=== PATIENT | female | born 1945 | race American Indian/Alaskan Native ===

== ENCOUNTER 2018-03-18 09:33 | Emergency (ER) | payer MEDICARE ==
[2018-03-18 10:19] LABS: Hematocrit 33.3 % (30.3-42.9); Hemoglobin 10.7 gm/dl (10.1-14.3); Mean Corpuscular HGB Conc 32 % (30-34); Mean Corpuscular Hemoglobin 28 pg (28-32); Mean Corpuscular Volume 88 fl (79-97); Platelet Count 299 K/mm3 (140-440); Red Blood Count 3.78 M/mm3 (3.65-5.03); Red Cell Distribution Width 15.1 % (13.2-15.2)
[2018-03-18 10:35] LABS: BUN/Creatinine Ratio 39; Blood Urea Nitrogen 31 mg/dL (7-17); Calcium 9.2 mg/dL (8.4-10.2); Hemolysis Index 3
[2018-03-18 10:52] LABS: Band Neutrophils # (Manual) 1.2 K/mm3; Basophils % (Manual) 0 % (0.0-1.8); Eosinophils % (Manual) 0 % (0.0-4.3); Monocytes % (Manual) 3.5 % (0.0-7.3); Myelocytes # (Manual) 0.1 K/mm3; Promyelocytes # (Manual) 0.1 K/mm3; Total Cells Counted 200
[2018-03-18 10:53] LABS: Anisocytosis 1+; Burr Cells Few; Hypochromasia 1+; Ovalocytes Few; Platelet Estimate Consistent w Auto; Poikilocytosis 1+
[2018-03-18] MEDS ORDERED: HumuLIN R IV ONE (13:17)
--- NOTE | 2018-03-18 13:24 | Emergency Department Report ---
Blank Doc - Documentation Documentation: 72 year-old female with past medical history hypertension diabetes, came in complaining of left foot pain and left foot wound. Patient states that she's had this now for over a month. Patient on examination has also now from her left foot with diffuse left foot infection with bone exposed. Patient also has left leg cellulitis. Patient is also in DKA. plan: -Insulin, fluids, insulin drip -vancomycin, zosyn -Pt to go to acute side and be admitted
[2018-03-18] MEDS ORDERED: VANCOMYCIN 1,250 MG in NACL 0.9% 250ML 250 ML IV ONE (14:00)
[2018-03-18] MEDS ORDERED: VANCOMYCIN PHARMACY TO DOSE IV SCH (14:00)
[2018-03-18] MEDS ORDERED: ZOSYN/NS 3.375GM/50ML 3.375 GM/50 ML BAG IV SCH (14:00)
[2018-03-18 14:12] LABS: INR 0.93 (0.87-1.13)
[2018-03-18 14:13] LABS: Partial Thromboplastin Time 31.6 Sec. (24.2-36.6)
--- NOTE | 2018-03-18 14:32 | XRay Report ---
LEFT FOOT RADIOGRAPHS INDICATION: Left foot infection. Evaluate for osteomyelitis. COMPARISON: None similar at this institution. FINDINGS: AP, lateral and oblique left foot radiographs demonstrate extensive subcutaneous emphysema involving the imaged lower leg and greatest along medial aspect of the foot. Extensive foot dorsal soft tissue swelling also noted. Some ulceration about the heel suspected. Small dorsal and plantar calcaneal spurs. Possible osteopenia. Foot bones and joints are otherwise grossly intact. CONCLUSION: Left foot and imaged lower leg extensive subcutaneous emphysema with diffuse swelling/cellulitis. No definite plain radiographic evidence of bony destruction at this time. Please correlate. Thank you for the opportunity to participate in this patient's care.
[2018-03-18] MEDS ORDERED: NACL 0.9% 1000 ML 1,000 ML IV ONE ×3 (14:39→16:00)
[2018-03-18] MEDS ORDERED: D50W (25GM) Syringe IV PRN (14:39)
--- NOTE | 2018-03-18 14:48 | Emergency Department Report ---
ED General Adult HPI - General Chief complaint: Weakness Stated complaint: TROUBLE WALKING, WEAK,FATIGUE Time Seen by Provider: 03/18/18 12:45 Source: patient Mode of arrival: Ambulatory Limitations: Physical Limitation - History of Present Illness Initial comments: Patient was seen at [facility] at initial triage lab studies received antibiotics culture fluids for possible DKA with sepsis with infected left foot she does have a chronic changes to the foot with local redness or warmth and necrotic changes, she was turned over to my care for definitive follow-up and management she's having no chest painaching chills she is awake alert oriented 3 she does appear chronically ill neck was supple having no other complaints except the red hot foot. She's not a good historian except that she thinks is been there for a while she does have a chronic changes to the foot and unclear when the foot first became necrotic and she is here today for worsening redness and pain to the left lower extremity -: days(s) Associated Symptoms: fever/chills, malaise, weakness. denies: confusion, chest pain, cough, diaphoresis, shortness of breath, syncope - Related Data Allergies Allergy/AdvReac Type Severity Reaction Status Date / Time aspirin Allergy Hives Verified 03/18/18 10:05 ED Review of Systems ROS: Stated complaint: TROUBLE WALKING, WEAK,FATIGUE Other details as noted in HPI Comment: All other systems reviewed and negative Constitutional: fever, malaise, weakness. denies: diaphoresis Eyes: denies: eye pain ENT: denies: ear pain, throat pain Respiratory: denies: cough, orthopnea Cardiovascular: denies: chest pain, palpitations, dyspnea on exertion, orthopnea Endocrine: denies: excessive sweating Gastrointestinal: denies: abdominal pain, nausea, vomiting, constipation, hematemesis, melena, hematochezia Genitourinary: denies: urgency, dysuria Skin: rash, lesions, change in color Neurological: numbness. denies: headache, weakness, vertigo ED Past Medical Hx - Past Medical History Hx Diabetes: Yes (NO MEDICATION) - Surgical History Past Surgical History?: No - Social History Smoking Status: Former Smoker Substance Use Type: None ED Physical Exam - General Limitations: Physical Limitation General appearance: alert, anxious - Head Head exam: Present: atraumatic, normocephalic - Eye Eye exam: Present: EOMI - ENT ENT exam: Present: normal exam, normal orophraynx - Neck Neck exam: Present: normal inspection. Absent: tenderness, meningismus - Respiratory Respiratory exam: Present: normal lung sounds bilaterally. Absent: respiratory distress, wheezes, rales, rhonchi, stridor, chest wall tenderness, accessory muscle use - Cardiovascular Cardiovascular Exam: Present: regular rate, normal rhythm, normal heart sounds. Absent: systolic murmur, diastolic murmur, rubs, gallop - GI/Abdominal GI/Abdominal exam: Present: soft. Absent: tenderness, guarding, rebound, rigid , mass, pulsatile mass - Extremities Exam Extremities exam: Present: tenderness, other (dorsal left foot with necrotic change with local warmth and redness Nvi) - Back Exam Back exam: Absent: CVA tenderness (L), muscle spasm, paraspinal tenderness, vertebral tenderness - Neurological Exam Neurological exam: Present: alert, oriented X3, CN II-XII intact. Absent: motor sensory deficit - Skin Skin exam: Present: erythema, ecchymosis, other (warmth) ED Course Vital Signs 03/18/18 03/18/18 09:59 13:41 Pulse Rate 93 H Respiratory 19 19 Rate Blood Pressure 120/57 O2 Sat by Pulse 100 Oximetry - Reevaluation(s) Reevaluation #1: 03/18/18 14:[address] [facility] he was given IV fluids and antibiotics ED Medical Decision Making - Lab Data Result diagrams: 03/18/18 10:08 03/18/18 10:12 - Radiology Data Radiology results: report reviewed - Medical Decision Making Antibiotics were given IV fluids were given patient's nhc[id number].Casewasd iscussedwithsurgeryforadamantgiventheelevatedsugarandtheketosis.Iwilldiscusscase withpodiatr ygiventhenatureoftheextremityandlikelyneedforamputation.Shehasastablebloodpressu reshe ' llbeadmittedforfurtherevaluationofhyperglycemiawithketosiswithnecroticleftfootwi thcellulitis hyperglycemia w/ ketosis and cellultisi w/ necrotic l foot, page to podiatry for eval, vss Critical care attestation.: If time is entered above; I have spent that time in minutes in the direct care of this critically ill patient, excluding procedure time. ED Disposition Clinical Impression: DKA (diabetic ketoacidosis), Cellulitis, Diabetic foot infection Disposition: OP ADMIT IP TO THIS HOSP Is pt being admited?: Yes Condition: Stable Instructions: Diabetic Ketoacidosis (ED), Diabetes Mellitus Type 2 in Adults ( ED) Referrals: PRIMARY CARE, [Primary Care Provider] - 3-5 Days Time of Disposition: 15:07
[2018-03-18] MEDS ORDERED: HumuLIN R 100 UNITS in NACL 0.9% 99 ML IV SCH (15:00)
[2018-03-18] MEDS ORDERED: SODIUM CHLORIDE FLUSH SYRINGE 10 ML IV PRN (15:06)
[2018-03-18] MEDS ORDERED: VANCOMYCIN VIAL IV ONE (15:08)
[2018-03-18] MEDS ORDERED: NACL 0.9% 1000 ML IV ONE (15:08)
--- NOTE | 2018-03-18 15:11 | History and Physical Report ---
History of Present Illness Chief complaint: My foot looks bad History of present illness: 72 YO Female with DM, Medication Noncompliance, HTN presents to ED for evaluation. Pt states that she has experienced Left foot swelling, redness, and drainage over the past 3 weeks with worsening symptoms over the past 1 week. Pt states that she is unable to bear weight on her left leg due to pain. Pt denies fever, chills, CP, Palpitations, NVD, syncope, Trauma, foot drop, recent ill contacts. Pt seen and evaluated in ED and found to have Sepsis secondary to LLE Cellulitis with gangrene, as well as DKA. Pt found to have soft tissue gas on x ray. Podiatry/Surgery consulted by ED physician while patient in ED. Pt admitted to ICU. Past History Past Medical History: diabetes, hypertension Past Surgical History: No surgical history, Other (reviewed) Social history: . denies: smoking, alcohol abuse, prescription drug abuse Family history: diabetes, hypertension Medications and Allergies Allergies Allergy/AdvReac Type Severity Reaction Status Date / Time aspirin Allergy Hives Verified 03/18/18 10:05 Active Meds: Active Medications Dextrose (D50w (25gm) Syringe) 0 ml IV ONCE PRN PRN Reason: Hypoglycemia Piperacillin Sod/Tazobactam Sod (Zosyn/Ns 3.375gm/50ml) 3.375 gm in 50 mls @ 100 mls/hr IV Q6HR INA Vancomycin HCl (Vancomycin/0.45 Ns 1 Gm/250 Ml) 1 gm in 250 mls @ 167.007 mls/ hr IV Q24H INA; Protocol Vancomycin HCl 1,250 mg/ (Sodium Chloride) 262.5 mls @ 166.667 mls/hr IV ONCE ONE Stop: 03/18/18 15:34 Last Admin: 03/18/18 14:08 Dose: 166.667 mls/hr Sodium Chloride (Nacl 0.9% 1000 Ml) 1,000 mls @ 999 mls/hr IV BOLUS ONE Stop: 03/18/18 15:39 Insulin Human Regular 100 (units/ Sodium Chloride) 100 mls @ 1 mls/hr IV TITR INA; Protocol Sodium Chloride (Nacl 0.9% 1000 Ml) 1,000 mls @ 999 mls/hr IV BOLUS ONE Stop: 03/18/18 15:42 Sodium Chloride (Nacl 0.9% 1000 Ml) 1,000 mls @ 999 mls/hr IV BOLUS ONE Stop: 03/18/18 17:00 Piperacillin Sod/Tazobactam Sod (Zosyn/Ns 4.5gm/100ml) 4.5 gm in 100 mls @ 200 mls/hr IV Q8HR INA; Protocol Sodium Chloride (Sodium Chloride Flush Syringe 10 Ml) 10 ml IV BID INA Sodium Chloride (Sodium Chloride Flush Syringe 10 Ml) 10 ml IV PRN PRN PRN Reason: LINE FLUSH Sodium Chloride (Nacl 0.9% 1000 Ml) 1,910 ml 30 ml/kg (1910 ml) IV ONCE ONE Stop: 03/18/18 15:09 Vancomycin HCl (Vancomycin Pharmacy To Dose) 1 each IV PKCONSULT INA Vancomycin HCl (Vancomycin Vial) 1,250 mg 20 mg/kg (1250 mg) IV ONCE ONE; Protocol Stop: 03/18/18 15:09 Review of Systems Constitutional: no weight loss, no weight gain, no fever, no chills Ears, nose, mouth and throat: no ear pain, no ear discharge, no tinnitis, no decreased hearing, no nose pain, no nasal congestion Breasts: no change in shape, no swelling, no mass Cardiovascular: no chest pain, no orthopnea, no palpitations, no rapid/ irregular heart beat, no edema, no syncope Respiratory: no cough, no cough with sputum, no excessive sputum, no hemoptysis , no shortness of breath Gastrointestinal: no nausea, no vomiting, no diarrhea, no constipation, no change in bowel habits Genitourinary Female: no dysmenorrhea, no pelvic pain, no flank pain, no menorrhagia, no dysuria, no urinary frequency, no urgency, no stress incontinence Rectal: no pain, no incontinence, no bleeding Musculoskeletal: no neck stiffness, no neck pain, no shooting arm pain, no arm numbness/tingling, no low back pain, no shooting leg pain, no leg numbness/ tingling Integumentary: no rash, no pruritis, no redness, no sores, no wounds, no jaundice Neurological: no paralysis, no weakness, no parathesias, no numbness, no tingling, no seizures, no syncope, no tremors, no ataxia Psychiatric: no anxiety, no memory loss, no change in sleep habits, no sleep disturbances, no insomnia, no hypersomnia, no change in appetite, no change in libido, no suicidal ideation Endocrine: no cold intolerance, no heat intolerance, no polyphagia, no excessive thirst, no polydipsia, no polyuria, no nocturia, no excessive sweating Hematologic/Lymphatic: no easy bruising, no easy bleeding, no lymphadenopathy, no lymphedema Allergic/Immunologic: no urticaria, no allergic rhinitis, no wheezing Exam - Constitutional Vitals: Temp Pulse Resp BP Pulse Ox 93 H 19 120/57 100 03/18/18 09:59 03/18/18 13:41 03/18/18 09:59 03/18/18 09:59 General appearance: Present: mild distress - EENT Eyes: Present: PERRL ENT: hearing intact, clear oral mucosa - Neck Neck: Present: supple, normal ROM - Respiratory Respiratory effort: normal Respiratory: bilateral: CTA - Cardiovascular Heart Sounds: Present: S1 & S2. Absent: rub, click - Extremities Extremities: pulses symmetrical, No edema Extremity abnormal: edema, ulceration, erythema, tenderness (LLE) Peripheral Pulses: abnormal (capillary refill greater than 3.6 seconds) - Abdominal General gastrointestinal: Present: soft, non-tender, non-distended, normal bowel sounds Female genitourinary: Present: normal - Integumentary Integumentary: Present: clear, warm, dry - Musculoskeletal Musculoskeletal: gait normal, strength equal bilaterally - Psychiatric Psychiatric: appropriate mood/affect, intact judgment & insight - Neurologic Neurologic: CNII-XII intact, moves all extremities Results - Labs CBC & Chem 7: 03/18/18 10:08 03/18/18 10:12 Labs: Abnormal lab results 03/18/18 03/18/18 03/18/18 Range/Units 10:08 10:12 13:31 WBC 26.1 H (4.5-11.0) K/mm3 Seg Neuts % (Manual) 88.0 H (40.0-70.0) % Lymphocytes % (Manual) 2.0 L (13.4-35.0) % Seg Neutrophils # Man 23.0 H (1.8-7.7) K/mm3 Lymphocytes # (Manual) 0.5 L (1.2-5.4) K/mm3 Monocytes # (Manual) 0.9 H (0.0-0.8) K/mm3 POC ABG pCO2 (35-45) POC ABG pO2 (80-105) Sodium 124 L (137-145) mmol/L Chloride 80.1 L (98-107) mmol/L Carbon Dioxide 11 L (22-30) mmol/L BUN 31 H (7-17) mg/dL Glucose 569 H* (65-100) mg/dL Lactic Acid 2.80 H* (0.7-2.0) mmol/L 03/18/18 03/18/18 Range/Units 14:35 14:39 WBC (4.5-11.0) K/mm3 Seg Neuts % (Manual) (40.0-70.0) % Lymphocytes % (Manual) (13.4-35.0) % Seg Neutrophils # Man (1.8-7.7) K/mm3 Lymphocytes # (Manual) (1.2-5.4) K/mm3 Monocytes # (Manual) (0.0-0.8) K/mm3 POC ABG pCO2 14.0 L (35-45) POC ABG pO2 130 H (80-105) Sodium (137-145) mmol/L Chloride (98-107) mmol/L Carbon Dioxide (22-30) mmol/L BUN (7-17) mg/dL Glucose (65-100) mg/dL Lactic Acid 3.30 H* (0.7-2.0) mmol/L Assessment and Plan - Patient Problems (1) Sepsis Current Visit: Yes Status: Acute Qualifiers: Sepsis type: sepsis due to unspecified organism Qualified Code(s): A41.9 - Sepsis, unspecified organism Plan to address problem: IV antibiotics, IVF resuscitation, monitor uop q shift, serial lactic acid levels, blood cultures, Chest x ray, wound cultures, urinalysis, CBC (2) HTN (hypertension) Current Visit: Yes Status: Acute Qualifiers: Hypertension type: essential hypertension Qualified Code(s): I10 - Essential (primary) hypertension Plan to address problem: monitor bp q shift, continue current medical management (3) DKA (diabetic ketoacidosis) Current Visit: Yes Status: Acute (4) Diabetic foot infection Current Visit: Yes Status: Acute Plan to address problem: DKA protocol: Insulin drip, IVF resuscitation, serial lactic acid, supportive care, serial bmp, monitor anion gap (5) DVT prophylaxis Current Visit: Yes Status: Acute
[2018-03-18 16:00] LABS: BUN/Creatinine Ratio 36; Blood Urea Nitrogen 32 mg/dL (7-17); Calcium 8.2 mg/dL (8.4-10.2); Hemolysis Index 259
[2018-03-18] MEDS ORDERED: ZOSYN/NS 4.5GM/100ML 4.5 GM/100 ML VIAL IV SCH (16:00)
--- NOTE | 2018-03-18 16:24 | Event Note ---
Date: 03/18/18 72 year old female with acute worsening over the last few days of a chronic left lower extremity wound. Knee and tib/fib x-rays ordered. Crepitus on physical exam and gas gangrene on xray. Vascular consulted to evaluate left leg ischemia. No left lower extremity ischemia appreciated. No vascular intervention required. Would consult orthopedist. If no orthopedist available, then consider transfer to a facility with orthopedics available. Patient will likely require major amputation of the left lower extremity.
--- NOTE | 2018-03-18 17:07 | XRay Report ---
FINAL REPORT EXAM: XR KNEE 1-2V LT HISTORY: gas gangrene TECHNIQUE: Left knee 2 views PRIORS: None. FINDINGS: No fracture is identified. No dislocation seen. No evidence of joint effusion. Patella demonstrates normal positioning. No acute bony abnormality identified. IMPRESSION: Negative knee series
--- NOTE | 2018-03-18 17:21 | XRay Report ---
FINAL REPORT EXAM: XR TIBIA FIBULA 2V LT HISTORY: gas gangrene TECHNIQUE: Left tibia-fibula two views PRIORS: None. FINDINGS: There is soft tissue gas present. The air collections are seen along the dorsum of the foot, around the calcaneus and extending up the lower leg to the level of the proximal. No focal bony destructive changes are observed. No radiopaque foreign bodies are identified. Joint spaces are within normal limits. IMPRESSION: Soft tissue gas consistent with gas gangrene No plain film evidence for acute osteomyelitis
[2018-03-18 17:22] LABS: BUN/Creatinine Ratio 40; Blood Urea Nitrogen 32 mg/dL (7-17); Calcium 7.7 mg/dL (8.4-10.2); Hemolysis Index 68
[2018-03-18 17:27] VITALS: BP 116/74
--- NOTE | 2018-03-18 19:35 | Magnetic Resonance Report ---
FINAL REPORT PROCEDURE: MR LE NONJOINT LT WO/W CON TECHNIQUE: Magnetic resonance imaging of the LEFT foot was performed using standard pulse sequences before and after the IV injection of paramagnetic contrast. HISTORY: osteomyelitis COMPARISON: No prior studies are available for comparison. FINDINGS: There is diffuse soft tissue swelling seen throughout the ankle and foot. There are multiple areas of void signal intensity consistent with bubbles of gas seen on plain films of the foot also performed earlier today. No fractures are identified. There is subtle decreased T1 signal in the posterior aspect of the calcaneus extending to the neck of the calcaneus. This shows increased T2 signal and mild enhancement after administering gadolinium. The appearance suggest mild osteomyelitis. No other changes are seen that would suggest osteomyelitis. There is mild osteoarthritic change in the MTP joint of the great toe. No effusions are identified. Skin thickening and subcutaneous edema visualized consistent with cellulitis. The flexor and extensor tendons appear to be intact. Talar dome is intact. IMPRESSION: Skin thickening and subcutaneous edema visualized consistent with cellulitis. Multiple small signal voids visualized in the soft tissues of the foot consistent with a gas bubble seen on the plain film earlier today. The overall appearance suggest cellulitis with gas-forming organism. Abnormal signal seen in the periphery of the posterior aspect of the calcaneus extending to the neck of the calcaneus as described with mild enhancement suggesting mild osteomyelitis. No other evidence of osteomyelitis. No fractures are seen. Mild osteoarthritic change MTP joint of the great toe.
[2018-03-18] MEDS ORDERED: SODIUM CHLORIDE FLUSH SYRINGE 10 ML IV SCH (22:00)
[2018-03-19] MEDS ORDERED: VANCOMYCIN/0.45 NS 1 GM/250 ML 1 GM/250 ML BAG IV SCH (14:00)
== END 2018-03-18 19:06 | disposition other institution (70) ==
LOC: ED 09:33
DX: E11.10 Type 2 diabetes mellitus with ketoacidosis without coma (principal); E11.69 Type 2 diabetes mellitus with other specified complication; L08.9 Local infection of the skin and subcutaneous tissue, unspecified; Z88.5 Allergy status to narcotic agent
CPT/HCPCS: 36415; 73560; 73590; 73630; 73720; 80048; 82010; 82140; 82803; 82962; 83735; 84100; 84484; 85007; 85025; 85610; 85730; 87040; 96365; 96366; 96367; 96368; 96375; 99285; A9577; J2543; J3370; J7030; J7050; J1815

== ENCOUNTER 2019-03-01 22:00 | Inpatient (IN) | payer MEDICARE ==
--- NOTE | 2019-03-01 22:12 | Emergency Department Report ---
Chief Complaint: Weakness Stated Complaint: LEFT ARM TWITCHING WEAKNESS Time Seen by Provider: 03/01/19 22:06 - HPI History of Present Illness: pt presents with tremors of the left arm that began 1 hour ago according to patient, according to daughter it started at 6:00 PM no XIAO, numbness no hx of CVA hx of DM, is supposed to be on metformin no cardiac hx blood sugar >500 on finger stick will send to CT immediately, to r/o CVA will send to main ED for further evaluation and treatment MSE screening note: Focused history and physical exam performed. Due to findings the following was ordered: CT head w/o contrast, labs
--- NOTE | 2019-03-01 22:36 | Cat Scan Report ---
PROCEDURE: CT HEAD/BRAIN WO CON TECHNIQUE: Spiral CT imaging of the brain was obtained without IV contrast. HISTORY: Stroke symptoms COMPARISONS: None FINDINGS: Brain: There is no evidence of intracranial hemorrhage. No parenchymal hemorrhage is seen. No mass lesions or mass effect is identified. No abnormal extra-axial fluid collections or masses are seen. There is minimal decreased density seen in the periventricular white matter without mass effect. Thi s is fairly symmetric and does not exhibit any mass effect consistent with gliosis probably on the ba sis of microvascular disease or white matter changes of aging. Ventricles: The ventricles, sulcal pattern and fissures are minimally prominent consistent with atro phy. Bone Windows: No evidence of fracture. Paranasal sinuses: Visualized portions are clear.. Mastoid air cells: There is rest portions are clear.. IMPRESSION: Minimal atrophy and gliosis. No acute abnormalities seen. This document is electronically signed by Steve Puri MD., March 01 2019 10:34:23 PM ET
[2019-03-01] MEDS ORDERED: ATIVAN IV ONE (22:38)
[2019-03-01] MEDS ORDERED: KEPPRA 1,000 MG/NS 0.75% 100ML 1,000 MG/100 ML BAG IV ONE (22:38)
--- NOTE | 2019-03-01 22:53 | Emergency Department Report ---
HPI - General Chief Complaint: Weakness Time Seen by Provider: 03/01/19 22:06 - HPI HPI: 73-year-old female presents to the emergency department from home as a code stroke. The patient has been having a few days of left upper extremity and hand weakness. It has caused her to have difficulty using her walker and she has had at least one, if not more, falls secondary to this. The patient's left hand appears clenched in her left upper extremity is having some type of tremor and/or spasm. The patient's daughter says that this has been going on for a few days as well intermittently but the patient herself says that this started this evening. She denies any headache, vision change, slurred speech or any other neurological deficits. She has a past medical history of diabetes but is not on any medication. 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 ED Past Medical Hx - Past Medical History Previous Medical History?: Yes Hx Diabetes: Yes (NO MEDICATION) - Surgical History Additional Surgical History: Massimo QUARLES 02/2015 - Social History Smoking Status: Never Smoker Substance Use Type: None ED Review of Systems ROS: Stated complaint: LEFT ARM TWITCHING WEAKNESS Other details as noted in HPI Comment: All other systems reviewed and negative Constitutional: denies: chills, fever Eyes: denies: eye pain, vision change ENT: denies: ear pain, throat pain Respiratory: denies: cough, shortness of breath Cardiovascular: denies: chest pain, palpitations Gastrointestinal: denies: abdominal pain, vomiting Genitourinary: denies: dysuria, discharge Musculoskeletal: denies: back pain, arthralgia Skin: denies: rash, lesions Neurological: weakness. denies: headache Physical Exam - Physical Exam Vital Signs: Vital Signs 03/01/19 22:14 Temperature 99.4 F Pulse Rate 108 H Respiratory 18 Rate Blood Pressure 190/107 O2 Sat by Pulse 99 Oximetry Physical Exam: GENERAL: The patient is well-developed well-nourished. HEENT: Normocephalic. Atraumatic. Patient has moist mucous membranes. EYES: Extraocular motions are intact. Pupils are equal and reactive to light bilaterally. NECK: Supple. Trachea is midline. CHEST/LUNGS: Clear to auscultation. There is no respiratory distress noted. HEART/CARDIOVASCULAR: Regular. There is no tachycardia. There is no obvious murmur. ABDOMEN: Abdomen is soft, nontender. Patient has normal bowel sounds. There is no abdominal distention. SKIN: Skin is warm and dry. NEURO: The patient is awake, alert, and oriented. The patient is cooperative. The patient has normal speech. Cranial nerves II through XII grossly intact. The patient has a clenched left hand/wrist and her left upper extremity continues to move like a large, or spasmodic motion and the patient is unable to stop this. No facial asymmetry. MUSCULOSKELETAL: There is no tenderness or deformity. There is no evidence of acute injury. Left above-knee amputation. ED Course Vital Signs 03/01/19 22:14 Temperature 99.4 F Pulse Rate 108 H Respiratory 18 Rate Blood Pressure 190/107 O2 Sat by Pulse 99 Oximetry - Consultations Consultation #1: 03/02/19 01:04 The patient was evaluated by the telemedicine neurologist in the room as soon as she returned from CT scan. He feels that the patient may be exhibiting focal seizures with the left upper extremity clenched fist and unintentional movements. However, he also feels that the patient should still be worked up for possible stroke. However the symptoms began a few days ago and the patient is outside the window for TPA. He recommended giving a dose of Ativan and then loaded with 1 g of Keppra followed by 500 mg of Keppra twice a day. Consultation #2: 03/02/19 01:[address] Titus at the [facility] transfer line who has given permission for this patient to be admitted to our hospital. ED Medical Decision Making - Lab Data Result diagrams: 03/01/19 22:53 03/01/19 22:53 - EKG Data -: EKG Interpreted by [facility] EKG shows normal: sinus rhythm, axis, intervals, QRS complexes (q waves to the anterior-septal leads) Rate: tachycardia (101 bpm) - EKG Data When compared to previous EKG there are: previous EKG unavailable Interpretation: other (sinus tachycardia at 101 beats minute, Q waves to the septal and anterior leads) - Radiology Data Radiology results: report reviewed PROCEDURE: CT HEAD/BRAIN WO CON TECHNIQUE: Spiral CT imaging of the brain was obtained without IV contrast. HISTORY: Stroke symptoms COMPARISONS: None FINDINGS: Brain: There is no evidence of intracranial hemorrhage. No parenchymal hemorrhage is seen. No mass lesions or mass effect is identified. No abnormal extra-axial fluid collections or masses are seen. There is minimal decreased density seen in the periventricular white matter without mass effect. This is fairly symmetric and does not exhibit any mass effect consistent with gliosis probably on the basis of microvascular disease or white matter changes of aging. Ventricles: The ventricles, sulcal pattern and fissures are minimally prominent consistent with atrophy. Bone Windows: No evidence of fracture. Paranasal sinuses: Visualized portions are clear.. Mastoid air cells: There is rest portions are clear.. IMPRESSION: Minimal atrophy and gliosis. No acute abnormalities seen. This document is electronically signed by Ricardo Guzman MD., March 01 2019 10:34:23 PM ET Transcribed By: DFN Dictated By: RICARDO GUZMAN MD Electronically Authenticated By: RICARDO GUZMAN MD Signed Date/Time: 03/01/192235 - Medical Decision Making This patient presents from triage as a code stroke. However while she was at the CT scan the patient started having worsening of this left upper extremity tremor or unintentional movement along with a clenched and flexed left hand. CT scan did not show any bleed, shift, mass, ischemia or any other acute process. She was seen by the telemedicine neurologist who felt that this could be a focal seizure versus CVA versus other. She is not a TPA candidate but the recommendation was given to give Ativan and Keppra. Patient's labs came back showing severe hyperglycemia with a blood sugar of about 730. She has an anion gap of 19 and only some trace ketones in the urine. She does not appear to be in diabetic ketoacidosis. She has been given IV fluid resuscitation and a bolus of IV insulin and will continue to have Accu-Cheks done. We were given permission by her insurance company, [employer], to keep her at our facility for further evaluation and treatment. The patient was accepted for admission by the hospitalist, Dr. Mar. - Differential Diagnosis DKA, HHNK, CVA, TIA Critical Care Time: Yes Critical care time in (mins) excluding proc time.: 35 Critical care attestation.: If time is entered above; I have spent that time in minutes in the direct care of this critically ill patient, excluding procedure time. Critical care time was spent on this patient during her initial evaluation, multiple re-evaluations, ordering interpretation of labs and imaging, discussion with the telemedicine neurologist, discussion with the patient's family. The patient has a condition that has a higher probability of clinically significant, sudden, or life-threatening deterioration that has required multiple evaluations and direct attention, intervention, and management. Critical Care Time: 35 minutes ED Disposition Clinical Impression: Hyperosmolar non-ketotic state in patient with type 2 diabetes mellitus, Involuntary movements Uncontrolled diabetes mellitus Qualifiers: Diabetes mellitus type: type 2 Glycemic state: with hyperglycemia Qualified Code(s): E11.65 - Type 2 diabetes mellitus with hyperglycemia Disposition: DC-09 OP ADMIT IP TO THIS HOSP Is pt being admited?: Yes Does the pt Need Aspirin: No Condition: Serious Instructions: Diabetes Mellitus Type 2 in Adults (ED) Referrals: PRIMARY CARE, [Primary Care Provider] - 3-5 Days Time of Disposition: 01:10 - Assessment Assessment Interval: Baseline - Level of Consciousness 1a. Level of Consciousness: alert/keenly responsive - LOC Questions 1b. LOC Questions: answers both correctly - LOC Command 1c. LOC Commands: performs tasks correctly - Best Gaze 2. Best Gaze: normal - Visual 3. Visual: no visual loss - Facial Palsy 4. Facial Palsy: normal symmetrical movement - Motor Arm 5a. Motor Arm Left: some gravity effort 5b. Motor Arm Right: no drift - Motor Leg 6a. Motor Leg Left: no drift 6b. Motor Leg Right: no drift - Limb Ataxia 7. Limb Ataxia: present 1 limb - Sensory 8. Sensory: normal - Best Language 9. Best Language: no aphasia - Dysarthria 10. Dysarthria: normal - Extinction and Inattention 11. Extinction/Inattention: no abnormality - Scoring Total Score: 3 Stroke Severity: Minor Stroke
[2019-03-01 23:03] LABS: Basophils # (Auto) 0.1 K/mm3 (0.0-0.1); Basophils % (Auto) 1.2 % (0.0-1.8); Eosinophils # (Auto) 0.1 K/mm3 (0.0-0.4); Eosinophils % (Auto) 1.2 % (0.0-4.3); Hematocrit 35.5 % (30.3-42.9); Hemoglobin 11.8 gm/dl (10.1-14.3); Lymphocytes # (Auto) 1.1 K/mm3 (1.2-5.4); Lymphocytes % (Auto) 15.8 % (13.4-35.0); Mean Corpuscular HGB Conc 33 % (30-34); Mean Corpuscular Volume 87 fl (79-97); Monocytes # (Auto) 0.9 K/mm3 (0.0-0.8); Monocytes % (Auto) 12.6 % (0.0-7.3); Platelet Count 281 K/mm3 (140-440); Red Blood Count 4.09 M/mm3 (3.65-5.03); Red Cell Distribution Width 14.5 % (13.2-15.2)
[2019-03-01 23:14] LABS: INR 0.9 (0.87-1.13)
[2019-03-01 23:15] LABS: Partial Thromboplastin Time 22.1 Sec. (24.2-36.6); Thrombin Time 17.8 Sec. (15.1-19.6)
[2019-03-01] MEDS ORDERED: NACL 0.9% 1000 ML 1,000 ML ONE (23:22)
[2019-03-01 23:24] LABS: Calcium 9.3 mg/dL (8.4-10.2)
[2019-03-01] MEDS ORDERED: NACL 0.9% 1000 ML 1,000 ML IV ONE (23:24)
[2019-03-01 23:30] LABS: Creatine Kinase MB 2.8 ng/mL (0.0-4.0)
[2019-03-01 23:32] LABS: Alanine Aminotransferase 28 units/L (7-56); Albumin 3.6 g/dL (3.9-5); BUN/Creatinine Ratio 19; Blood Urea Nitrogen 17 mg/dL (7-17); Calcium 9.3 mg/dL (8.4-10.2); Hemolysis Index 46
[2019-03-01 23:35] LABS: Bilirubin,Urine NEG (Negative); Blood,Urine SM (Negative); Color,Urine Colorless (Yellow); Mucus,Urine FEW /HPF; Urobilinogen,Urine < 2.0 mg/dL (<2.0)
[2019-03-01] MEDS ORDERED: HumuLIN R IV ONE (23:49)
[2019-03-02] MEDS ORDERED: REGLAN PO PRN (00:36)
[2019-03-02] MEDS ORDERED: APRESOLINE IV PRN (00:36)
[2019-03-02] MEDS ORDERED: SODIUM CHLORIDE FLUSH SYRINGE 10 ML INJ PRN (00:36)
[2019-03-02] MEDS ORDERED: ZOFRAN IV PRN ×2 (00:36)
[2019-03-02] MEDS ORDERED: PHENERGAN PR PRN (00:36)
[2019-03-02] MEDS ORDERED: DULCOLAX PR PRN (00:36)
[2019-03-02] MEDS ORDERED: SODIUM CHLORIDE FLUSH SYRINGE 10 ML IV PRN (00:36)
[2019-03-02] MEDS ORDERED: TYLENOL PO PRN ×2 (00:36)
[2019-03-02] MEDS ORDERED: MILK OF MAGNESIA PO PRN (00:36)
[2019-03-02] MEDS ORDERED: AMBIEN PO PRN (00:36)
--- NOTE | 2019-03-02 01:00 | Emergency Department Report ---
ED Neuro Deficit HPI - General Chief Complaint: Weakness Stated Complaint: LEFT ARM TWITCHING WEAKNESS Time Seen by Provider: 03/01/19 22:06 Source: patient, family Mode of arrival: Wheelchair Limitations: Physical Limitation - History of Present Illness Initial Comments: [facility] Impression: * RO Acute Ischemic Stroke * Focal Status Epilepticus Patient presents with hsitory of two days of weakness left upper limb, and now recurrent clonic activity of the left upper limb in the last hour before admission. The presentation now is suggestive of recurrent focal motor seizures in the setting of more subacute left upper limb weakness. Underlying subacute infarct would need to be considered. With two days of symptoms , she is not candidate for tPA. The presentation is not suggestive of LVO thrombosis. At this time, the plan would be to immediately initiate Antiepileptic treatment, Ativan stat , followed by Keppra 1000 mg bolus and then 500 mg bid maintenance dose. if there is indication of recurrent seizure activity, please notify us. I reassessed the patient via telemedicine again after the initial evaluation, and at that time, the seizure activity subsided. Comments: [facility] contacted: [phone] [facility] at bedside: 2230 NIHSS assessment time: 2234 Recommendations: * AED treatment now. * Start Antiplatelet therapy now. * Not candidate for tPA or thrombectomy. * Routine neurology consultation in am. Discussed with ED MD Please call with questions Carlos Luis MD [facility] CC Left upper limb shaking. History of Present Illness Patient is a pleasant 73 year old woman who presents with history of left upper limb weakness, which she states she has had since yesterday. It appears that the weakness became more significant this evening, and as of one hour before the presentation, she developed involuntary clonic movements of the left upper limb. This has been present intermittently but persistent for the last hour or so. Diagnostic: Head CT reviewed. Exam: Patient is in no apparent distress. Patient appears as stated age. No obvious acute respiratory or cardiac distress. Patient is well groomed and well- nourished. 1A: Level of Consciousness - Alert; keenly responsive 1B: Ask Month and Age - Both Questions Right 1C: 'Blink Eyes' & 'Squeeze Hands' - Performs Both Tasks 2: Test Horizontal Extraocular Movements - Normal 3: Test Visual Harris - No Visual Loss 4: Test Facial Palsy - Normal symmetry 5A: Test Left Arm Motor Drift - persistent clonic movements left upper lmib 5B: Test Right Arm Motor Drift - No Drift for 10 Seconds 6A: Test Left Leg Motor Drift - amputation. 6B: Test Right Leg Motor Drift - No Drift for 5 Seconds 7: Test Limb Ataxia - No Ataxia 8: Test Sensation - Normal; No sensory loss 9: Test Language/Aphasia - Normal; No aphasia 10: Test Dysarthria - Normal 11: Test Extinction/Inattention - No abnormality Medical Decision Making: - Extensive number of diagnosis or management options are considered above. - Extensive amount of complex data reviewed. - High risk of complication and/or morbidity or mortality are associated with d ifferential diagnostic considerations above. - There may be Uncertain outcome and increased probability of prolonged functional impairment or high probability of severe prolonged functional impairment associated with some of these differential diagnosis. Medical Data Reviewed: 1.Data reviewed include clinical labs, radiology,Medical Tests; 2.Tests results discussed w/performing or interpreting physician; 3.Obtaining/reviewing old medical records; 4.Obtaining case history from another source; 5.Independent review of image, tracing or specimen. - Related Data Allergies/Adverse Reactions: Allergies Allergy/AdvReac Type Severity Reaction Status Date / Time aspirin Allergy Hives Verified 03/18/18 10:05 ED Review of Systems ROS: Stated complaint: LEFT ARM TWITCHING WEAKNESS Other details as noted in HPI Constitutional: denies: chills, fever Eyes: denies: eye pain, vision change ENT: denies: ear pain, throat pain Respiratory: denies: cough, shortness of breath Cardiovascular: denies: chest pain, palpitations Gastrointestinal: denies: abdominal pain, vomiting Genitourinary: denies: dysuria, discharge Musculoskeletal: denies: back pain, arthralgia Skin: denies: rash, lesions Neurological: weakness. denies: headache ED Past Medical Hx - Past Medical History Previous Medical History?: Yes Hx Diabetes: Yes (NO MEDICATION) - Surgical History Additional Surgical History: L AKA 02/2015 - Social History Smoking Status: Never Smoker Substance Use Type: None ED Neuro Physical Exam - General Limitations: Physical Limitation Suspected Stroke: No ED Course Vital Signs 03/01/19 03/01/19 03/01/19 22:14 23:00 23:11 Temperature 99.4 F Pulse Rate 108 H 111 H 108 H Respiratory 18 Rate Blood Pressure 190/107 164/76 O2 Sat by Pulse 99 97 94 Oximetry 03/01/19 03/01/19 03/01/19 23:13 23:15 23:17 Temperature Pulse Rate 107 H 105 H 104 H Respiratory Rate Blood Pressure 164/76 164/76 164/76 O2 Sat by Pulse 91 91 92 Oximetry 03/01/19 03/01/19 03/01/19 23:19 23:21 23:23 Temperature Pulse Rate 104 H 101 H 99 H Respiratory Rate Blood Pressure 164/76 135/64 135/64 O2 Sat by Pulse 97 99 98 Oximetry 03/01/19 03/01/19 03/01/19 23:25 23:27 23:29 Temperature Pulse Rate 101 H 100 H 100 H Respiratory Rate Blood Pressure 135/64 135/64 135/64 O2 Sat by Pulse 100 100 100 Oximetry 03/01/19 03/01/19 03/01/19 23:31 23:33 23:35 Temperature Pulse Rate 100 H 100 H 99 H Respiratory Rate Blood Pressure 135/64 135/64 127/63 O2 Sat by Pulse 100 100 100 Oximetry 03/01/19 03/01/19 03/01/19 23:36 23:37 23:39 Temperature Pulse Rate 99 H 103 H 97 H Respiratory Rate Blood Pressure 127/63 127/63 127/63 O2 Sat by Pulse 100 99 100 Oximetry 03/01/19 03/01/19 23:41 23:43 Temperature Pulse Rate 99 H 100 H Respiratory Rate Blood Pressure 127/63 127/63 O2 Sat by Pulse 100 100 Oximetry - Lab Data Result diagrams: 03/01/19 22:53 03/01/19 22:53 Lab Results 03/01/19 03/01/19 03/01/19 Range/Units 22:15 22:50 22:53 WBC 6.8 (4.5-11.0) K/mm3 RBC 4.09 (3.65-5.03) M/mm3 Hgb 11.8 (10.1-14.3) gm/dl Hct 35.5 (30.3-42.9) % MCV 87 (79-97) fl MCH 29 (28-32) pg MCHC 33 (30-34) % RDW 14.5 (13.2-15.2) % Plt Count 281 (140-440) K/mm3 Lymph % (Auto) 15.8 (13.4-35.0) % [place]ter[place] % (Auto) 12.6 H (0.0-7.3) % Eos % (Auto) 1.2 (0.0-4.3) % Baso % (Auto) 1.2 (0.0-1.8) % Lymph # 1.1 L (1.2-5.4) K/mm3 [place]ter[place] # 0.9 H (0.0-0.8) K/mm3 Eos # 0.1 (0.0-0.4) K/mm3 Baso # 0.1 (0.0-0.1) K/mm3 Seg Neutrophils % 69.2 (40.0-70.0) % Seg Neutrophils # 4.7 (1.8-7.7) K/mm3 PT (12.2-14.9) Sec. INR (0.87-1.13) APTT (24.2-36.6) Sec. Thrombin Time (15.1-19.6) Sec. VBG pH (7.320-7.420) Sodium (137-145) mmol/L Potassium (3.6-5.0) mmol/L Chloride (98-107) mmol/L Carbon Dioxide (22-30) mmol/L Anion Gap mmol/L BUN (7-17) mg/dL Creatinine (0.7-1.2) mg/dL Estimated GFR ml/min BUN/Creatinine Ratio % Glucose (65-100) mg/dL POC Glucose > 500 H (70-105) Calcium (8.4-10.2) mg/dL Phosphorus (2.5-4.5) mg/dL Magnesium (1.7-2.3) mg/dL Total Bilirubin (0.1-1.2) mg/dL AST (5-40) units/L ALT (7-56) units/L Alkaline Phosphatase (35-129) units/L Total Creatine Kinase (30-135) units/L CK-MB (CK-2) (0.0-4.0) ng/mL CK-MB (CK-2) Rel Index (0-4) Troponin T (0.00-0.029) ng/mL Total Protein (6.3-8.2) g/dL Albumin (3.9-5) g/dL Albumin/Globulin Ratio % Urine Color Colorless (Yellow) Urine Turbidity Clear (Clear) Urine pH 7.0 (5.0-7.0) Ur Specific [place] 1.029 (1.003-1.030) Urine Protein 30 mg/dl (Negative) mg/dL Urine Glucose (UA) >=500 (Negative) mg/dL Urine Ketones Tr (Negative) mg/dL Urine Blood Sm (Negative) Urine Nitrite Neg (Negative) Urine Bilirubin Neg (Negative) Urine Urobilinogen < 2.0 (<2.0) mg/dL Ur Leukocyte Esterase Neg (Negative) Urine WBC (Auto) 1.0 (0.0-6.0) /HPF Urine RBC (Auto) 6.0 (0.0-6.0) /HPF U Epithel Cells (Auto) 2.0 (0-13.0) /HPF Urine Mucus Few /HPF 03/01/19 03/01/19 03/01/19 Range/Units 22:53 22:53 22:53 WBC (4.5-11.0) K/mm3 RBC (3.65-5.03) M/mm3 Hgb (10.1-14.3) gm/dl Hct (30.3-42.9) % MCV (79-97) fl MCH (28-32) pg MCHC (30-34) % RDW (13.2-15.2) % Plt Count (140-440) K/mm3 Lymph % (Auto) (13.4-35.0) % [place] % (Auto) (0.0-7.3) % Eos % (Auto) (0.0-4.3) % Baso % (Auto) (0.0-1.8) % Lymph # (1.2-5.4) K/mm3 Otero # (0.0-0.8) K/mm3 Eos # (0.0-0.4) K/mm3 Baso # (0.0-0.1) K/mm3 Seg Neutrophils % (40.0-70.0) % Seg Neutrophils # (1.8-7.7) K/mm3 PT 12.7 (12.2-14.9) Sec. INR 0.90 (0.87-1.13) APTT 22.1 L (24.2-36.6) Sec. Thrombin Time 17.8 (15.1-19.6) Sec. VBG pH (7.320-7.420) Sodium 130 L (137-145) mmol/L Potassium 5.0 (3.6-5.0) mmol/L Chloride 91.4 L (98-107) mmol/L Carbon Dioxide 25 (22-30) mmol/L Anion Gap 19 mmol/L BUN 17 (7-17) mg/dL Creatinine 0.9 (0.7-1.2) mg/dL Estimated GFR > 60 ml/min BUN/Creatinine Ratio 19 % Glucose 729 H* (65-100) mg/dL POC Glucose (70-105) Calcium 9.3 9.3 (8.4-10.2) mg/dL Phosphorus 4.10 (2.5-4.5) mg/dL Magnesium 2.10 (1.7-2.3) mg/dL Total Bilirubin 0.30 (0.1-1.2) mg/dL AST 26 (5-40) units/L ALT 28 (7-56) units/L Alkaline Phosphatase 87 (35-129) units/L Total Creatine Kinase 284 H (30-135) units/L CK-MB (CK-2) 2.8 (0.0-4.0) ng/mL CK-MB (CK-2) Rel Index 0.9 (0-4) Troponin T < 0.010 (0.00-0.029) ng/mL Total Protein 7.4 (6.3-8.2) g/dL Albumin 3.6 L (3.9-5) g/dL Albumin/Globulin Ratio 0.9 % Urine Color (Yellow) Urine Turbidity (Clear) Urine pH (5.0-7.0) Ur Specific [place] (1.003-1.030) Urine Protein (Negative) mg/dL Urine Glucose (UA) (Negative) mg/dL Urine Ketones (Negative) mg/dL Urine Blood (Negative) Urine Nitrite (Negative) Urine Bilirubin (Negative) Urine Urobilinogen (<2.0) mg/dL Ur Leukocyte Esterase (Negative) Urine WBC (Auto) (0.0-6.0) /HPF Urine RBC (Auto) (0.0-6.0) /HPF U Epithel Cells (Auto) (0-13.0) /HPF Urine Mucus /HPF 03/01/19 03/02/19 Range/Units 23:36 00:50 WBC (4.5-11.0) K/mm3 RBC (3.65-5.03) M/mm3 Hgb (10.1-14.3) gm/dl Hct (30.3-42.9) % MCV (79-97) fl MCH (28-32) pg MCHC (30-34) % RDW (13.2-15.2) % Plt Count (140-440) K/mm3 Lymph % (Auto) (13.4-35.0) % Otero % (Auto) (0.0-7.3) % Eos % (Auto) (0.0-4.3) % Baso % (Auto) (0.0-1.8) % Lymph # (1.2-5.4) K/mm3 Otero # (0.0-0.8) K/mm3 Eos # (0.0-0.4) K/mm3 Baso # (0.0-0.1) K/mm3 Seg Neutrophils % (40.0-70.0) % Seg Neutrophils # (1.8-7.7) K/mm3 PT (12.2-14.9) Sec. INR (0.87-1.13) APTT (24.2-36.6) Sec. Thrombin Time (15.1-19.6) Sec. VBG pH 7.359 (7.320-7.420) Sodium (137-145) mmol/L Potassium (3.6-5.0) mmol/L Chloride (98-107) mmol/L Carbon Dioxide (22-30) mmol/L Anion Gap mmol/L BUN (7-17) mg/dL Creatinine (0.7-1.2) mg/dL Estimated GFR ml/min BUN/Creatinine Ratio % Glucose (65-100) mg/dL POC Glucose 432 H (70-105) Calcium (8.4-10.2) mg/dL Phosphorus (2.5-4.5) mg/dL Magnesium (1.7-2.3) mg/dL Total Bilirubin (0.1-1.2) mg/dL AST (5-40) units/L ALT (7-56) units/L Alkaline Phosphatase (35-129) units/L Total Creatine Kinase (30-135) units/L CK-MB (CK-2) (0.0-4.0) ng/mL CK-MB (CK-2) Rel Index (0-4) Troponin T (0.00-0.029) ng/mL Total Protein (6.3-8.2) g/dL Albumin (3.9-5) g/dL Albumin/Globulin Ratio % Urine Color (Yellow) Urine Turbidity (Clear) Urine pH (5.0-7.0) Ur Specific [place] (1.003-1.030) Urine Protein (Negative) mg/dL Urine Glucose (UA) (Negative) mg/dL Urine Ketones (Negative) mg/dL Urine Blood (Negative) Urine Nitrite (Negative) Urine Bilirubin (Negative) Urine Urobilinogen (<2.0) mg/dL Ur Leukocyte Esterase (Negative) Urine WBC (Auto) (0.0-6.0) /HPF Urine RBC (Auto) (0.0-6.0) /HPF U Epithel Cells (Auto) (0-13.0) /HPF Urine Mucus /HPF Critical care attestation.: If time is entered above; I have spent that time in minutes in the direct care of this critically ill patient, excluding procedure time. ED Disposition Clinical Impression: Seizure cerebral Disposition: DC-09 OP ADMIT IP TO THIS HOSP Is pt being admited?: Yes Condition: Stable Referrals: PRIMARY CARE, [Primary Care Provider] - 3-5 Days
--- NOTE | 2019-03-02 01:56 | History and Physical Report ---
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 Pt was seen in room, she is unable to provide medical history due to sleepyness and lethargy, th ehistory was provided by her younger daughter in room who reports that the patient c/o left hand weakness the day before, she states that she was unable to use her walker, or move her left hand, as per daughter the fingers was kept together, and the left hand appears clenched. Pt's daughter also states that her left arm was having tremor-like activity and spasm. Pt's daughter states that EMS was called, and the was taking to the ER for evaluation. Pt had denies any headache, denies visual changes, denies hearing changes, denies slurred speech or any difficulty changes. Patient had a CT scan of the brain in the ER which shows some minimal atrophy and gliosis, according to neurology patient had focal seizures. Patient is admitted for further evaluation an MRI of the brain and EEG will be done for further evaluation. Past History Past Medical History: diabetes, hypertension, hyperlipidemia, stroke Medications and Allergies Allergies Allergy/AdvReac Type Severity Reaction Status Date / Time aspirin Allergy Hives Verified 03/18/18 10:05 Active Meds: Active Medications Acetaminophen (Tylenol) 650 mg PO Q4H PRN PRN Reason: Pain MILD(1-3)/Fever >100.5/XIAO Atorvastatin Calcium (Lipitor) 40 mg PO QHS INA Bisacodyl (Dulcolax) 10 mg TN QDAY PRN PRN Reason: Constipation Famotidine (Pepcid) 20 mg IV BID INA Hydralazine HCl (Apresoline) 10 mg IV Q4HR PRN PRN Reason: Hypertension Magnesium Hydroxide (Milk Of Magnesia) 30 ml PO Q4H PRN PRN Reason: Constipation Metoclopramide HCl (Reglan) 10 mg PO Q6H PRN PRN Reason: Nausea And Vomiting Ondansetron HCl (Zofran) 4 mg IV Q8H PRN PRN Reason: Nausea And Vomiting Promethazine HCl (Phenergan) 25 mg TN Q6H PRN PRN Reason: Nausea And Vomiting Sodium Chloride (Sodium Chloride Flush Syringe 10 Ml) 10 ml IV BID INA Sodium Chloride (Sodium Chloride Flush Syringe 10 Ml) 10 ml IV PRN PRN PRN Reason: LINE FLUSH Zolpidem Tartrate (Ambien) 5 mg PO QHS PRN PRN Reason: Insomnia Review of Systems ROS unobtainable: due to mental status (somnolent ) Neurological: weakness, seizures, motor disturbance Psychiatric: other (somnolent) Exam - Constitutional Vitals: Temp Pulse Resp BP Pulse Ox 99.4 F 100 H 18 127/63 100 03/01/19 22:14 03/01/19 23:43 03/01/19 22:14 03/01/19 23:43 03/01/19 23:43 General appearance: Present: other (lethargic, somnolent) - EENT ENT: hearing intact - Neck Neck: Present: supple - Respiratory Respiratory effort: normal Respiratory: bilateral: CTA - Cardiovascular Rhythm: regular Heart Sounds: Present: S1 & S2 - Extremities Extremities: no ischemia, abnormal (left leg BKA) Peripheral Pulses: within normal limits - Integumentary Integumentary: Present: warm, dry - Musculoskeletal Musculoskeletal: left sided weakness - Psychiatric Psychiatric: other (unable to assess) - Neurologic Neurologic: focal deficits Results - Labs CBC & Chem 7: 03/01/19 22:53 03/01/19 22:53 Labs: Laboratory Last Values WBC 6.8 K/mm3 (4.5-11.0) 03/01/19 22:53 RBC 4.09 M/mm3 (3.65-5.03) 03/01/19 22:53 Hgb 11.8 gm/dl (10.1-14.3) 03/01/19 22:53 Hct 35.5 % (30.3-42.9) 03/01/19 22:53 MCV 87 fl (79-97) 03/01/19 22:53 MCH 29 pg (28-32) 03/01/19 22:53 MCHC 33 % (30-34) 03/01/19 22:53 RDW 14.5 % (13.2-15.2) 03/01/19 22:53 Plt Count 281 K/mm3 (140-440) 03/01/19 22:53 Lymph % (Auto) 15.8 % (13.4-35.0) 03/01/19 22:53 [place] % (Auto) 12.6 % (0.0-7.3) H 03/01/19 22:53 Eos % (Auto) 1.2 % (0.0-4.3) 03/01/19 22:53 Baso % (Auto) 1.2 % (0.0-1.8) 03/01/19 22:53 Lymph # 1.1 K/mm3 (1.2-5.4) L 03/01/19 22:53 [place] # 0.9 K/mm3 (0.0-0.8) H 03/01/19 22:53 Eos # 0.1 K/mm3 (0.0-0.4) 03/01/19 22:53 Baso # 0.1 K/mm3 (0.0-0.1) 03/01/19 22:53 Seg Neutrophils % 69.2 % (40.0-70.0) 03/01/19 22:53 Seg Neutrophils # 4.7 K/mm3 (1.8-7.7) 03/01/19 22:53 PT 12.7 Sec. (12.2-14.9) 03/01/19 22:53 INR 0.90 (0.87-1.13) 03/01/19 22:53 APTT 22.1 Sec. (24.2-36.6) L 03/01/19 22:53 Thrombin Time 17.8 Sec. (15.1-19.6) 03/01/19 22:53 VBG pH 7.359 (7.320-7.420) 03/01/19 23:36 Sodium 130 mmol/L (137-145) L 03/01/19 22:53 Potassium 5.0 mmol/L (3.6-5.0) 03/01/19 22:53 Chloride 91.4 mmol/L (98-107) L 03/01/19 22:53 Carbon Dioxide 25 mmol/L (22-30) 03/01/19 22:53 Anion Gap 19 mmol/L 03/01/19 22:53 BUN 17 mg/dL (7-17) 03/01/19 22:53 Creatinine 0.9 mg/dL (0.7-1.2) 03/01/19 22:53 Estimated GFR > 60 ml/min 03/01/19 22:53 BUN/Creatinine Ratio 19 % 03/01/19 22:53 Glucose 729 mg/dL (65-100) H* 03/01/19 22:53 POC Glucose 432 (70-105) H 03/02/19 00:50 Hemoglobin A1c 11.2 % (4-6) H 03/02/19 01:14 Calcium 9.3 mg/dL (8.4-10.2) 03/01/19 22:53 Phosphorus 4.10 mg/dL (2.5-4.5) 03/01/19 22:53 Magnesium 2.10 mg/dL (1.7-2.3) 03/01/19 22:53 Total Bilirubin 0.30 mg/dL (0.1-1.2) 03/01/19 22:53 AST 26 units/L (5-40) 03/01/19 22:53 ALT 28 units/L (7-56) 03/01/19 22:53 Alkaline Phosphatase 87 units/L (35-129) 03/01/19 22:53 Total Creatine Kinase 284 units/L (30-135) H 03/01/19 22:53 CK-MB (CK-2) 2.8 ng/mL (0.0-4.0) 03/01/19 22:53 CK-MB (CK-2) Rel Index 0.9 (0-4) 03/01/19 22:53 Troponin T < 0.010 ng/mL (0.00-0.029) 03/01/19 22:53 Total Protein 7.4 g/dL (6.3-8.2) 03/01/19 22:53 Albumin 3.6 g/dL (3.9-5) L 03/01/19 22:53 Albumin/Globulin Ratio 0.9 % 03/01/19 22:53 Urine Color Colorless (Yellow) 03/01/19 22:50 Urine Turbidity Clear (Clear) 03/01/19 22:50 Urine pH 7.0 (5.0-7.0) 03/01/19 22:50 Ur Specific [place] 1.029 (1.003-1.030) 03/01/19 22:50 Urine Protein 30 mg/dl mg/dL (Negative) 03/01/19 22:50 Urine Glucose (UA) >=500 mg/dL (Negative) 03/01/19 22:50 Urine Ketones Tr mg/dL (Negative) 03/01/19 22:50 Urine Blood Sm (Negative) 03/01/19 22:50 Urine Nitrite Neg (Negative) 03/01/19 22:50 Urine Bilirubin Neg (Negative) 03/01/19 22:50 Urine Urobilinogen < 2.0 mg/dL (<2.0) 03/01/19 22:50 Ur Leukocyte Esterase Neg (Negative) 03/01/19 22:50 Urine WBC (Auto) 1.0 /HPF (0.0-6.0) 03/01/19 22:50 Urine RBC (Auto) 6.0 /HPF (0.0-6.0) 03/01/19 22:50 U Epithel Cells (Auto) 2.0 /HPF (0-13.0) 03/01/19 22:50 Urine Mucus Few /HPF 03/01/19 22:50 Assessment and Plan Assessment and plan: 1. Acute for focal seizures 2. Strokelike symptoms 3. Malignant hypertension 4. Uncontrolled DM type II 5. Hyperlipidemia 6. Left BKA due to diabetes 7. Debilitating/Gait instability Plan: Patient is admitted to med telemetry to rule out CVA Continue to monitor neuro status Consult neurology Bedside Swallow eval, if positive consult speech therapy Glycemic management with insulin per sliding scale Strict glycemic control/Diabetes teaching Consult physical therapy for evaluation Speech therapy in the a.m. for evaluation Case management for DC planning to rehabilitation Start patient on statin, aspirin, ROSIE, Preventive care discussed with family, voiced understanding Patient's condition and plan of care discussed with Dr. Mar Advance Directives: Yes VTE prophylaxis?: Chemical Plan of care discussed with patient/family: Yes
[2019-03-02] MEDS ORDERED: ASPIRIN PO SCH (10:00)
[2019-03-02] MEDS: LOPRESSOR PO SCH ×2 (11:07→22:21)
[2019-03-02] MEDS: PEPCID IV SCH ×2 (11:07→22:21)
--- NOTE | 2019-03-02 11:41 | Progress Note ---
Assessment and Plan Assessment and plan: Acute CVA. CT scan of the head is negative. Await MRI, echocardiogram. Neurology consultation Focal status epilepticus. Resolved. Patient reportedly presented with history of 2 days of weakness of left upper extremity with recurrent clonic activity of the left upper extremity. Check EEG. Continue Keppra Accelerated hypertension. Continue Lopressor. Add Norvasc daily. Diabetes mellitus type 2, uncontrolled. Patient presented w/ glucose>700. Hemoglobin A1c 11.2. Long acting insulin of Lantus Left BKA due to diabetes Hyperlipidemia. Continue with Lipitor History Interval history: No new issues OVERNIGHT Hospitalist Physical - Constitutional Vitals: Temp Pulse Resp BP Pulse Ox 98.6 F 95 H 18 146/73 96 03/02/19 08:38 03/02/19 08:38 03/02/19 08:38 03/02/19 08:38 03/02/19 08:38 General appearance: Present: other (lethargic, somnolent) - EENT Eyes: Present: PERRL, EOM intact ENT: hearing intact, clear oral mucosa, dentition normal - Neck Neck: Present: supple, normal ROM - Respiratory Respiratory effort: normal Respiratory: bilateral: CTA - Cardiovascular Rhythm: regular Heart Sounds: Present: S1 & S2. Absent: gallop, rub - Extremities Extremities: no ischemia, No edema, Full ROM - Abdominal General gastrointestinal: soft, non-tender, non-distended, normal bowel sounds - Integumentary Integumentary: Present: clear, warm, dry - Neurologic Neurologic: CNII-XII intact, moves all extremities Results - Labs CBC & Chem 7: 03/01/19 22:53 03/01/19 22:53 Labs: Laboratory Last Values WBC 6.8 K/mm3 (4.5-11.0) 03/01/19 22:53 RBC 4.09 M/mm3 (3.65-5.03) 03/01/19 22:53 Hgb 11.8 gm/dl (10.1-14.3) 03/01/19 22:53 Hct 35.5 % (30.3-42.9) 03/01/19 22:53 MCV 87 fl (79-97) 03/01/19 22:53 MCH 29 pg (28-32) 03/01/19 22:53 MCHC 33 % (30-34) 03/01/19 22:53 RDW 14.5 % (13.2-15.2) 03/01/19 22:53 Plt Count 281 K/mm3 (140-440) 03/01/19 22:53 Lymph % (Auto) 15.8 % (13.4-35.0) 03/01/19 22:53 [place] % (Auto) 12.6 % (0.0-7.3) H 03/01/19 22:53 Eos % (Auto) 1.2 % (0.0-4.3) 03/01/19 22:53 Baso % (Auto) 1.2 % (0.0-1.8) 03/01/19 22:53 Lymph # 1.1 K/mm3 (1.2-5.4) L 03/01/19 22:53 [place] # 0.9 K/mm3 (0.0-0.8) H 03/01/19 22:53 Eos # 0.1 K/mm3 (0.0-0.4) 03/01/19 22:53 Baso # 0.1 K/mm3 (0.0-0.1) 03/01/19 22:53 Seg Neutrophils % 69.2 % (40.0-70.0) 03/01/19 22:53 Seg Neutrophils # 4.7 K/mm3 (1.8-7.7) 03/01/19 22:53 PT 12.7 Sec. (12.2-14.9) 03/01/19 22:53 INR 0.90 (0.87-1.13) 03/01/19 22:53 APTT 22.1 Sec. (24.2-36.6) L 03/01/19 22:53 Thrombin Time 17.8 Sec. (15.1-19.6) 03/01/19 22:53 VBG pH 7.359 (7.320-7.420) 03/01/19 23:36 Sodium 130 mmol/L (137-145) L 03/01/19 22:53 Potassium 5.0 mmol/L (3.6-5.0) 03/01/19 22:53 Chloride 91.4 mmol/L (98-107) L 03/01/19 22:53 Carbon Dioxide 25 mmol/L (22-30) 03/01/19 22:53 Anion Gap 19 mmol/L 03/01/19 22:53 BUN 17 mg/dL (7-17) 03/01/19 22:53 Creatinine 0.9 mg/dL (0.7-1.2) 03/01/19 22:53 Estimated GFR > 60 ml/min 03/01/19 22:53 BUN/Creatinine Ratio 19 % 03/01/19 22:53 Glucose 729 mg/dL (65-100) H* 03/01/19 22:53 POC Glucose 351 (70-105) H 03/02/19 08:44 Hemoglobin A1c 11.2 % (4-6) H 03/02/19 01:14 Calcium 9.3 mg/dL (8.4-10.2) 03/01/19 22:53 Phosphorus 4.10 mg/dL (2.5-4.5) 03/01/19 22:53 Magnesium 2.10 mg/dL (1.7-2.3) 03/01/19 22:53 Total Bilirubin 0.30 mg/dL (0.1-1.2) 03/01/19 22:53 AST 26 units/L (5-40) 03/01/19 22:53 ALT 28 units/L (7-56) 03/01/19 22:53 Alkaline Phosphatase 87 units/L (35-129) 03/01/19 22:53 Total Creatine Kinase 284 units/L (30-135) H 03/01/19 22:53 CK-MB (CK-2) 2.8 ng/mL (0.0-4.0) 03/01/19 22:53 CK-MB (CK-2) Rel Index 0.9 (0-4) 03/01/19 22:53 Troponin T < 0.010 ng/mL (0.00-0.029) 03/01/19 22:53 Total Protein 7.4 g/dL (6.3-8.2) 03/01/19 22:53 Albumin 3.6 g/dL (3.9-5) L 03/01/19 22:53 Albumin/Globulin Ratio 0.9 % 03/01/19 22:53 Urine Color Colorless (Yellow) 03/01/19 22:50 Urine Turbidity Clear (Clear) 03/01/19 22:50 Urine pH 7.0 (5.0-7.0) 03/01/19 22:50 Ur Specific [place] 1.029 (1.003-1.030) 03/01/19 22:50 Urine Protein 30 mg/dl mg/dL (Negative) 03/01/19 22:50 Urine Glucose (UA) >=500 mg/dL (Negative) 03/01/19 22:50 Urine Ketones Tr mg/dL (Negative) 03/01/19 22:50 Urine Blood Sm (Negative) 03/01/19 22:50 Urine Nitrite Neg (Negative) 03/01/19 22:50 Urine Bilirubin Neg (Negative) 03/01/19 22:50 Urine Urobilinogen < 2.0 mg/dL (<2.0) 03/01/19 22:50 Ur Leukocyte Esterase Neg (Negative) 03/01/19 22:50 Urine WBC (Auto) 1.0 /HPF (0.0-6.0) 03/01/19 22:50 Urine RBC (Auto) 6.0 /HPF (0.0-6.0) 03/01/19 22:50 U Epithel Cells (Auto) 2.0 /HPF (0-13.0) 03/01/19 22:50 Urine Mucus Few /HPF 03/01/19 22:50 Active Medications - Current Medications Current Medications: Generic Name Dose Route Start Last Admin Trade Name Freq PRN Reason Stop Dose Admin Acetaminophen 650 mg 03/02/19 00:36 Tylenol PO Q4H PRN Pain MILD(1-3)/Fever >100.5/XIAO Atorvastatin Calcium 40 mg 03/02/19 22:00 Lipitor PO QHS INA Bisacodyl 10 mg 03/02/19 00:36 Dulcolax [place] QDAY PRN Constipation Famotidine 20 mg 03/02/19 10:00 03/02/19 11:07 Pepcid IV 20 mg BID INA Administration Hydralazine HCl 10 mg 03/02/19 00:36 Apresoline IV Q4HR PRN Hypertension Magnesium Hydroxide 30 ml 03/02/19 00:36 Milk Of Magnesia PO Q4H PRN Constipation Metoclopramide HCl 10 mg 03/02/19 00:36 Reglan PO Q6H PRN Nausea And Vomiting Metoprolol Tartrate 25 mg 03/02/19 10:00 03/02/19 11:07 Lopressor PO 25 mg BID INA Administration Ondansetron HCl 4 mg 03/02/19 00:36 Zofran IV Q8H PRN Nausea And Vomiting Promethazine HCl 25 mg 03/02/19 00:36 Phenergan CA Q6H PRN Nausea And Vomiting Sodium Chloride 10 ml 03/02/19 10:00 Sodium Chloride Flush Syringe 10 Ml IV BID INA Sodium Chloride 10 ml 03/02/19 00:36 Sodium Chloride Flush Syringe 10 Ml IV PRN PRN LINE FLUSH Zolpidem Tartrate 5 mg 03/02/19 00:36 Ambien PO QHS PRN Insomnia Nutrition/Malnutrition Assess - Dietary Evaluation Nutrition/Malnutrition Findings: Nutrition Notes Start: 03/02/19 10:13 Freq: Status: Active Protocol: Document 03/02/19 10:13 SA (Rec: 03/02/19 10:23 SA [id number]) Co-Sign 03/02/19 10:13 LP Nutrition Notes Need for Assessment 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 Patient explains she 's had diabetes for over 5 years. However, pt wanted refresher information on consistent CHO diet. Pt states appetite is good and eating 100% of meals. Pt unsure of UBW. Pt denies swallowing/ chewing difficulties. Pt denies N/V/D. Percent of energy/protein needs met: 100%/100% #1 Nutrition Diagnosis Food and nutrition-related knowledge deficit Etiology lack of motivation As Evidenced by Signs and Symptoms A1C:11.2 Is patient on ventilator? No Is Patient Ambulatory and/or Out of Bed Yes REE-([place]-ambulatory/OOB) [ 1621.269 [id number]] Calculation Used for Recommendations [facility] Additional Notes Protein: 1-1.2 g/kg (76-91 g/ day) Fluid: 1 ml/kcal Nutrition Intervention Change Diet Order: Add consistent CHO modification Teaching Recipient Patient Learning Readiness Good Teaching Methods Discussion,Handout Response to Teaching Verbalize understanding Education Handouts Provided Carbohydrate Counting for People with Diabetes Barriers to Learning No Barriers RD phone number provided Yes Patient aware of follow up options Yes Goal #1 Adhere to diet recommendations Anticipated Discharge Needs: Cardiac/Consistent CHO Revisit per MD consult or patient Sign Off request:
[2019-03-02] MEDS ORDERED: D50W (25GM) Syringe IV PRN (13:25)
[2019-03-02] MEDS: HumaLOG SUB-Q SCH ×2 (18:15→22:22)
[2019-03-02] MEDS: SODIUM CHLORIDE FLUSH SYRINGE 10 ML IV SCH ×2 (20:23→22:25)
[2019-03-02] MEDS ORDERED: LANTUS SUB-Q SCH (22:00)
[2019-03-03 05:32] LABS: Basophils # (Auto) 0.1 K/mm3 (0.0-0.1); Basophils % (Auto) 1.1 % (0.0-1.8); Eosinophils # (Auto) 0.2 K/mm3 (0.0-0.4); Eosinophils % (Auto) 2.4 % (0.0-4.3); Hematocrit 31.2 % (30.3-42.9); Hemoglobin 10.6 gm/dl (10.1-14.3); Lymphocytes # (Auto) 1.4 K/mm3 (1.2-5.4); Lymphocytes % (Auto) 19.1 % (13.4-35.0); Mean Corpuscular HGB Conc 34 % (30-34); Mean Corpuscular Volume 84 fl (79-97); Monocytes % (Auto) 13.9 % (0.0-7.3); Platelet Count 251 K/mm3 (140-440); Red Blood Count 3.71 M/mm3 (3.65-5.03); Red Cell Distribution Width 14.2 % (13.2-15.2)
[2019-03-03 05:55] LABS: Chol/HDL Ratio 4.52 %
[2019-03-03] MEDS: HumaLOG SUB-Q SCH ×4 (07:30→22:15)
[2019-03-03] MEDS: PLAVIX PO SCH (11:22)
[2019-03-03] MEDS: PEPCID IV SCH ×2 (11:23→22:14)
[2019-03-03] MEDS: SODIUM CHLORIDE FLUSH SYRINGE 10 ML IV SCH ×2 (11:23→22:14)
[2019-03-03] MEDS: LOPRESSOR PO SCH ×2 (11:25→22:14)
--- NOTE | 2019-03-03 12:01 | Progress Note ---
Assessment and Plan Assessment and plan: Acute CVA. CT scan of the head is negative. Await MRI, echocardiogram essentially normal with the exception of diastolic dysfunction, negative bubble study. Neurology consultation pending. Focal status epilepticus. Resolved. Patient reportedly presented with history of 2 days of weakness of left upper extremity with recurrent clonic activity of the left upper extremity. EEG normal. Continue Keppra for now. Await neurology recommendations Accelerated hypertension. Continue Lopressor. Blood pressure better control with the addition of Norvasc Diabetes mellitus type 2, uncontrolled. Patient presented w/ glucose>700. Hemoglobin A1c 11.2. Continue sliding scale insulin and increase Lantus to 20 units Left BKA due to diabetes Hyperlipidemia. Continue with Lipitor Disposition. I discussed the plan of care with the daughter Kaitlin. History Interval history: No new issues OVERNIGHT Hospitalist Physical - Constitutional Vitals: Temp Pulse Resp BP Pulse Ox 97.8 F 80 16 140/84 96 03/03/19 04:34 03/03/19 11:25 03/03/19 04:34 03/03/19 11:25 03/03/19 04:34 General appearance: Present: other (lethargic, somnolent) - EENT Eyes: Present: PERRL, EOM intact ENT: hearing intact, clear oral mucosa, dentition normal - Neck Neck: Present: supple, normal ROM - Respiratory Respiratory effort: normal Respiratory: bilateral: CTA - Cardiovascular Rhythm: regular Heart Sounds: Present: S1 & S2. Absent: gallop, rub - Extremities Extremities: no ischemia, No edema, Full ROM - Abdominal General gastrointestinal: soft, non-tender, non-distended, normal bowel sounds - Integumentary Integumentary: Present: clear, warm, dry - Neurologic Neurologic: CNII-XII intact, moves all extremities Results - Labs CBC & Chem 7: 03/03/19 04:53 03/01/19 22:53 Labs: Laboratory Last Values WBC 7.4 K/mm3 (4.5-11.0) 03/03/19 04:53 RBC 3.71 M/mm3 (3.65-5.03) 03/03/19 04:53 Hgb 10.6 gm/dl (10.1-14.3) 03/03/19 04:53 Hct 31.2 % (30.3-42.9) 03/03/19 04:53 MCV 84 fl (79-97) 03/03/19 04:53 MCH 28 pg (28-32) 03/03/19 04:53 MCHC 34 % (30-34) 03/03/19 04:53 RDW 14.2 % (13.2-15.2) 03/03/19 04:53 Plt Count 251 K/mm3 (140-440) 03/03/19 04:53 Lymph % (Auto) 19.1 % (13.4-35.0) 03/03/19 04:53 [place] % (Auto) 13.9 % (0.0-7.3) H 03/03/19 04:53 Eos % (Auto) 2.4 % (0.0-4.3) 03/03/19 04:53 Baso % (Auto) 1.1 % (0.0-1.8) 03/03/19 04:53 Lymph # 1.4 K/mm3 (1.2-5.4) 03/03/19 04:53 [place] # 1.0 K/mm3 (0.0-0.8) H 03/03/19 04:53 Eos # 0.2 K/mm3 (0.0-0.4) 03/03/19 04:53 Baso # 0.1 K/mm3 (0.0-0.1) 03/03/19 04:53 Seg Neutrophils % 63.5 % (40.0-70.0) 03/03/19 04:53 Seg Neutrophils # 4.7 K/mm3 (1.8-7.7) 03/03/19 04:53 PT 12.7 Sec. (12.2-14.9) 03/01/19 22:53 INR 0.90 (0.87-1.13) 03/01/19 22:53 APTT 22.1 Sec. (24.2-36.6) L 03/01/19 22:53 Thrombin Time 17.8 Sec. (15.1-19.6) 03/01/19 22:53 VBG pH 7.359 (7.320-7.420) 03/01/19 23:36 Sodium 130 mmol/L (137-145) L 03/01/19 22:53 Potassium 5.0 mmol/L (3.6-5.0) 03/01/19 22:53 Chloride 91.4 mmol/L (98-107) L 03/01/19 22:53 Carbon Dioxide 25 mmol/L (22-30) 03/01/19 22:53 Anion Gap 19 mmol/L 03/01/19 22:53 BUN 17 mg/dL (7-17) 03/01/19 22:53 Creatinine 0.9 mg/dL (0.7-1.2) 03/01/19 22:53 Estimated GFR > 60 ml/min 03/01/19 22:53 BUN/Creatinine Ratio 19 % 03/01/19 22:53 Glucose 729 mg/dL (65-100) H* 03/01/19 22:53 POC Glucose 386 (70-105) H 03/02/19 21:04 Hemoglobin A1c 11.2 % (4-6) H 03/02/19 01:14 Calcium 9.3 mg/dL (8.4-10.2) 03/01/19 22:53 Phosphorus 4.10 mg/dL (2.5-4.5) 03/01/19 22:53 Magnesium 2.10 mg/dL (1.7-2.3) 03/01/19 22:53 Total Bilirubin 0.30 mg/dL (0.1-1.2) 03/01/19 22:53 AST 26 units/L (5-40) 03/01/19 22:53 ALT 28 units/L (7-56) 03/01/19 22:53 Alkaline Phosphatase 87 units/L (35-129) 03/01/19 22:53 Total Creatine Kinase 284 units/L (30-135) H 03/01/19 22:53 CK-MB (CK-2) 2.8 ng/mL (0.0-4.0) 03/01/19 22:53 CK-MB (CK-2) Rel Index 0.9 (0-4) 03/01/19 22:53 Troponin T < 0.010 ng/mL (0.00-0.029) 03/01/19 22:53 Total Protein 7.4 g/dL (6.3-8.2) 03/01/19 22:53 Albumin 3.6 g/dL (3.9-5) L 03/01/19 22:53 Albumin/Globulin Ratio 0.9 % 03/01/19 22:53 Triglycerides 112 mg/dL (2-149) 03/03/19 04:53 Cholesterol 190 mg/dL (50-199) 03/03/19 04:53 LDL Cholesterol Direct 150 mg/dL (50-130) H 03/03/19 04:53 HDL Cholesterol 42 mg/dL (40-59) 03/03/19 04:53 Cholesterol/HDL Ratio 4.52 % 03/03/19 04:53 Urine Color Colorless (Yellow) 03/01/19 22:50 Urine Turbidity Clear (Clear) 03/01/19 22:50 Urine pH 7.0 (5.0-7.0) 03/01/19 22:50 Ur Specific [place] 1.029 (1.003-1.030) 03/01/19 22:50 Urine Protein 30 mg/dl mg/dL (Negative) 03/01/19 22:50 Urine Glucose (UA) >=500 mg/dL (Negative) 03/01/19 22:50 Urine Ketones Tr mg/dL (Negative) 03/01/19 22:50 Urine Blood Sm (Negative) 03/01/19 22:50 Urine Nitrite Neg (Negative) 03/01/19 22:50 Urine Bilirubin Neg (Negative) 03/01/19 22:50 Urine Urobilinogen < 2.0 mg/dL (<2.0) 03/01/19 22:50 Ur Leukocyte Esterase Neg (Negative) 03/01/19 22:50 Urine WBC (Auto) 1.0 /HPF (0.0-6.0) 03/01/19 22:50 Urine RBC (Auto) 6.0 /HPF (0.0-6.0) 03/01/19 22:50 U Epithel Cells (Auto) 2.0 /HPF (0-13.0) 03/01/19 22:50 Urine Mucus Few /HPF 03/01/19 22:50 Active Medications - Current Medications Current Medications: Generic Name Dose Route Start Last Admin Trade Name Freq PRN Reason Stop Dose Admin Acetaminophen 650 mg 03/02/19 00:36 Tylenol PO Q4H PRN Pain MILD(1-3)/Fever >100.5/XIAO Atorvastatin Calcium 40 mg 03/02/19 22:00 03/02/19 22:21 Lipitor PO 40 mg QHS INA Administration Bisacodyl 10 mg 03/02/19 00:36 Dulcolax [place] QDAY PRN Constipation Clopidogrel Bisulfate 75 mg 03/03/19 10:00 03/03/19 11:22 Plavix PO 75 mg QDAY IAN Administration Dextrose 50 ml 03/02/19 13:25 D50w (25gm) Syringe IV PRN PRN Hypoglycemia Famotidine 20 mg 03/02/19 10:00 03/03/19 11:23 Pepcid IV 20 mg BID INA Administration Hydralazine HCl 10 mg 03/02/19 00:36 Apresoline IV Q4HR PRN Hypertension Insulin Glargine 10 units 03/02/19 22:00 03/02/19 22:21 Lantus SUB-Q 10 units QHS [facility] Administration Insulin Human Lispro 0 unit 03/02/19 16:30 03/03/19 07:30 Humalog SUB-Q Not Given ACHS [facility] Protocol Magnesium Hydroxide 30 ml 03/02/19 00:36 Milk Of Magnesia PO Q4H PRN Constipation Metoclopramide HCl 10 mg 03/02/19 00:36 Reglan PO Q6H PRN Nausea And Vomiting Metoprolol Tartrate 25 mg 03/02/19 10:00 03/03/19 11:25 Lopressor PO 25 mg BID INA Administration Ondansetron HCl 4 mg 03/02/19 00:36 Zofran IV Q8H PRN Nausea And Vomiting Promethazine HCl 25 mg 03/02/19 00:36 Phenergan PA Q6H PRN Nausea And Vomiting Sodium Chloride 10 ml 03/02/19 10:00 03/03/19 11:23 Sodium Chloride Flush Syringe 10 Ml IV 10 ml BID INA Administration Sodium Chloride 10 ml 03/02/19 00:36 Sodium Chloride Flush Syringe 10 Ml IV PRN PRN LINE FLUSH Zolpidem Tartrate 5 mg 03/02/19 00:36 Ambien PO QHS PRN Insomnia Nutrition/Malnutrition Assess - Dietary Evaluation Nutrition/Malnutrition Findings: Nutrition Notes Start: 03/02/19 10:13 Freq: Status: Active Protocol: Document 03/02/19 10:13 SA (Rec: 03/02/19 10:23 SA [id number]) Co-Sign 03/02/19 10:13 LP Nutrition Notes Need for Assessment generated from: flare breaker,Education Initial or Follow up Assessment Current Diagnosis Diabetes,Hypertension,Stroke, Hyperlipidemia Other Pertinent Diagnosis left BKA Current Diet Cardiac Labs/Tests Na: 130 Cl: 91.4 Glu: 729 A1C: 11.2 Pertinent Medications Reviewed Height 5 ft 3 in Weight 76.3 kg [place] Body Weight (kg) 52.27 BMI 29.7 Weight Status Overweight Subjective/Other Information RN screen for new onset of diabetes. Patient explains she 's had diabetes for over 5 years. However, pt wanted refresher information on consistent CHO diet. Pt states appetite is good and eating 100% of meals. Pt unsure of UBW. Pt denies swallowing/ chewing difficulties. Pt denies N/V/D. Percent of energy/protein needs met: 100%/100% #1 Nutrition Diagnosis Food and nutrition-related knowledge deficit Etiology lack of motivation As Evidenced by Signs and Symptoms A1C:11.2 Is patient on ventilator? No Is Patient Ambulatory and/or Out of Bed Yes REE-([facility]-ambulatory/OOB) [ [id number] [id number]] Calculation Used for Recommendations [facility] Additional Notes Protein: 1-1.2 g/kg (76-91 g/ day) Fluid: 1 ml/kcal Nutrition Intervention Change Diet Order: Add consistent CHO modification Teaching Recipient Patient Learning Readiness Good Teaching Methods Discussion,Handout Response to Teaching Verbalize understanding Education Handouts Provided Carbohydrate Counting for People with Diabetes Barriers to Learning No Barriers RD phone number provided Yes Patient aware of follow up options Yes Goal #1 Adhere to diet recommendations Anticipated Discharge Needs: Cardiac/Consistent CHO Revisit per MD consult or patient Sign Off request:
--- NOTE | 2019-03-03 14:30 | Consultation ---
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 The patient c/o left hand weakness for 2 nights in a roq, whereby she had difficulty walikng with her walker. During the day things woukld improve. On one day week she was in a store and her left hand began to move uncontrollably. This lasted for several min. She then went to a birthday constitution party and again developed weakness, clumsiness of the left hand, and finally uncontrollable movements. She was brought to ER. CT scan shows no acute changes, EEG did not detect epileptiform activity. MRI is pending. The pt. denies any difficulty with right arm and leg. She has no numbness or tingling, no dizziness, no nausea or headache. She has never had a spell like this before. Past History Past Medical History: diabetes, hypertension, hyperlipidemia, stroke Medications and Allergies Allergies Allergy/AdvReac Type Severity Reaction Status Date / Time aspirin Allergy Hives Verified 03/18/18 10:05 Home Medications Medication Instructions Recorded Confirmed Last Taken Type metFORMIN [Glucophage] 1,000 tab PO QPM 03/02/19 03/02/19 Unknown History Active Meds: Active Medications Acetaminophen (Tylenol) 650 mg PO Q4H PRN PRN Reason: Pain MILD(1-3)/Fever >100.5/XIAO Atorvastatin Calcium (Lipitor) 40 mg PO QHS [facility] Last Admin: 03/02/19 22:21 Dose: 40 mg Documented by: Bisacodyl (Dulcolax) 10 mg [place] QDAY PRN PRN Reason: Constipation Clopidogrel Bisulfate (Plavix) 75 mg PO QDAY [facility] Last Admin: 03/03/19 11:22 Dose: 75 mg Documented by: Dextrose (D50w (25gm) Syringe) 50 ml IV PRN PRN PRN Reason: Hypoglycemia Famotidine (Pepcid) 20 mg IV BID [facility] Last Admin: 03/03/19 11:23 Dose: 20 mg Documented by: Hydralazine HCl (Apresoline) 10 mg IV Q4HR PRN PRN Reason: Hypertension Insulin Glargine (Lantus) 20 units SUB-Q QHS [facility] Insulin Human Lispro (Humalog) 0 unit SUB-Q ACHS [facility]; Protocol Last Admin: 03/03/19 12:39 Dose: 8 unit Documented by: Magnesium Hydroxide (Milk Of Magnesia) 30 ml PO Q4H PRN PRN Reason: Constipation Metoclopramide HCl (Reglan) 10 mg PO Q6H PRN PRN Reason: Nausea And Vomiting Metoprolol Tartrate (Lopressor) 25 mg PO BID [facility] Last Admin: 03/03/19 11:25 Dose: 25 mg Documented by: Ondansetron HCl (Zofran) 4 mg IV Q8H PRN PRN Reason: Nausea And Vomiting Promethazine HCl (Phenergan) 25 mg [place] Q6H PRN PRN Reason: Nausea And Vomiting Sodium Chloride (Sodium Chloride Flush Syringe 10 Ml) 10 ml IV BID [facility] Last Admin: 03/03/19 11:23 Dose: 10 ml Documented by: Sodium Chloride (Sodium Chloride Flush Syringe 10 Ml) 10 ml IV PRN PRN PRN Reason: LINE FLUSH Zolpidem Tartrate (Ambien) 5 mg PO QHS PRN PRN Reason: Insomnia Physical Examination - Vital Signs Vital Signs: Vital Signs Temp Pulse Resp BP Pulse Ox 99.4 F 108 H 18 190/107 99 03/01/19 22:14 03/01/19 22:14 03/01/19 22:14 03/01/19 22:14 03/01/19 22:14 - Physical Exam Narrative exam: General - Resting comfortably in bed. Neurological exam - Speech fluent. Oriented. decorating supervisor - intact. Motor - 4/5 finger extensors on left. Wrist extensors 4+/5 Clumsy movements. Remaining exam is 5/5. RT. lower extremity 5/5 prox and distal. reflexes - trace throughout. Sensory - mild decrease in left hand to touch. Cerebellar - difficult to perform with left hand but she was able to do fine finger movements well with both hands. FTN intact, Maty a bit clumsy on the left. Results - Laboratory Findings CBC and BMP: 03/03/19 04:53 03/01/19 22:53 Abnormal Lab Findings: Abnormal Labs 03/01/19 03/01/19 03/01/19 22:15 22:53 22:53 [place] % (Auto) 12.6 H Lymph # 1.1 L [place] # 0.9 H APTT 22.1 L Sodium Chloride Glucose POC Glucose > 500 H Hemoglobin A1c Total Creatine Kinase Albumin LDL Cholesterol Direct 03/01/19 03/02/19 03/02/19 22:53 00:50 01:14 [place] % (Auto) Lymph # [place] # APTT Sodium 130 L Chloride 91.4 L Glucose 729 H* POC Glucose 432 H Hemoglobin A1c 11.2 H Total Creatine Kinase 284 H Albumin 3.6 L LDL Cholesterol Direct 03/02/19 03/02/19 03/02/19 08:44 13:06 21:04 [place] % (Auto) Lymph # [place] # APTT Sodium Chloride Glucose POC Glucose 351 H 407 H 386 H Hemoglobin A1c Total Creatine Kinase Albumin LDL Cholesterol Direct 03/03/19 03/03/19 04:53 04:53 [place] % (Auto) 13.9 H Lymph # [place] # 1.0 H APTT Sodium Chloride Glucose POC Glucose Hemoglobin A1c Total Creatine Kinase Albumin LDL Cholesterol Direct 150 H Assessment and Plan Pt is a 73-year-old black female with PMHx of DM type 2, 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 She has had episodic weakness and uncontrollable movements of the left hand. MRI scan is still pending. Plan - Keppra 500 mg BID PT/OT consult. Diabetes and htn control ASA and atorvastatin.
[2019-03-03] MEDS: LANTUS SUB-Q SCH (22:14)
[2019-03-04 05:44] LABS: Basophils % (Auto) 0.6 % (0.0-1.8); Eosinophils # (Auto) 0.2 K/mm3 (0.0-0.4); Eosinophils % (Auto) 2.6 % (0.0-4.3); Hemoglobin 10.7 gm/dl (10.1-14.3); Lymphocytes # (Auto) 1.5 K/mm3 (1.2-5.4); Lymphocytes % (Auto) 23.5 % (13.4-35.0); Mean Corpuscular HGB Conc 34 % (30-34); Mean Corpuscular Volume 85 fl (79-97); Monocytes # (Auto) 0.9 K/mm3 (0.0-0.8); Monocytes % (Auto) 14.4 % (0.0-7.3); Platelet Count 242 K/mm3 (140-440); Red Blood Count 3.78 M/mm3 (3.65-5.03); Red Cell Distribution Width 13.9 % (13.2-15.2)
[2019-03-04 06:05] LABS: BUN/Creatinine Ratio 23; Blood Urea Nitrogen 16 mg/dL (7-17); Calcium 8.4 mg/dL (8.4-10.2); Hemolysis Index 6
[2019-03-04] MEDS: HumaLOG SUB-Q SCH ×4 (09:14→22:20)
[2019-03-04] MEDS: PEPCID IV SCH ×2 (09:15→21:44)
[2019-03-04] MEDS: PLAVIX PO SCH (09:15)
[2019-03-04] MEDS: LOPRESSOR PO SCH ×2 (09:15→21:43)
[2019-03-04] MEDS: SODIUM CHLORIDE FLUSH SYRINGE 10 ML IV SCH ×2 (09:16→21:44)
--- NOTE | 2019-03-04 12:34 | Progress Note ---
Assessment and Plan Assessment and plan: Acute CVA. CT scan of the head is negative. Await MRI, echocardiogram essentially normal with the exception of diastolic dysfunction, negative bubble study. Neurology consultation pending. Focal status epilepticus. Resolved. Patient reportedly presented with history of 2 days of weakness of left upper extremity with recurrent clonic activity of the left upper extremity. EEG normal. Continue Keppra 500 mg twice a day per neurology recommendations Accelerated hypertension. Continue Lopressor. Blood pressure better control with the addition of Norvasc Diabetes mellitus type 2, uncontrolled. Patient presented w/ glucose>700. Hemoglobin A1c 11.2. Continue sliding scale insulin and increase Lantus to 20 units Left BKA due to diabetes Hyperlipidemia. Continue with Lipitor Disposition. Physical therapy recommends KATHERINE, ovoid placement. History Interval history: No new issues OVERNIGHT Hospitalist Physical - Constitutional Vitals: Temp Pulse Resp BP Pulse Ox 99.4 F 90 18 142/78 91 03/04/19 05:34 03/04/19 12:00 03/04/19 10:00 03/04/19 09:15 03/04/19 05:34 General appearance: Present: other (lethargic, somnolent) - EENT Eyes: Present: PERRL, EOM intact ENT: hearing intact, clear oral mucosa, dentition normal - Neck Neck: Present: supple, normal ROM - Respiratory Respiratory effort: normal Respiratory: bilateral: CTA - Cardiovascular Rhythm: regular Heart Sounds: Present: S1 & S2. Absent: gallop, rub - Extremities Extremities: no ischemia, No edema, Full ROM - Abdominal General gastrointestinal: soft, non-tender, non-distended, normal bowel sounds - Integumentary Integumentary: Present: clear, warm, dry - Neurologic Neurologic: CNII-XII intact, moves all extremities Results - Labs CBC & Chem 7: 03/04/19 04:39 03/04/19 04:39 Labs: Laboratory Last Values WBC 6.5 K/mm3 (4.5-11.0) 03/04/19 04:39 RBC 3.78 M/mm3 (3.65-5.03) 03/04/19 04:39 Hgb 10.7 gm/dl (10.1-14.3) 03/04/19 04:39 Hct 32.0 % (30.3-42.9) 03/04/19 04:39 MCV 85 fl (79-97) 03/04/19 04:39 MCH 28 pg (28-32) 03/04/19 04:39 MCHC 34 % (30-34) 03/04/19 04:39 RDW 13.9 % (13.2-15.2) 03/04/19 04:39 Plt Count 242 K/mm3 (140-440) 03/04/19 04:39 Lymph % (Auto) 23.5 % (13.4-35.0) 03/04/19 04:39 [place] % (Auto) 14.4 % (0.0-7.3) H 03/04/19 04:39 Eos % (Auto) 2.6 % (0.0-4.3) 03/04/19 04:39 Baso % (Auto) 0.6 % (0.0-1.8) 03/04/19 04:39 Lymph # 1.5 K/mm3 (1.2-5.4) 03/04/19 04:39 [place] # 0.9 K/mm3 (0.0-0.8) H 03/04/19 04:39 Eos # 0.2 K/mm3 (0.0-0.4) 03/04/19 04:39 Baso # 0.0 K/mm3 (0.0-0.1) 03/04/19 04:39 Seg Neutrophils % 58.9 % (40.0-70.0) 03/04/19 04:39 Seg Neutrophils # 3.8 K/mm3 (1.8-7.7) 03/04/19 04:39 PT 12.7 Sec. (12.2-14.9) 03/01/19 22:53 INR 0.90 (0.87-1.13) 03/01/19 22:53 APTT 22.1 Sec. (24.2-36.6) L 03/01/19 22:53 Thrombin Time 17.8 Sec. (15.1-19.6) 03/01/19 22:53 VBG pH 7.359 (7.320-7.420) 03/01/19 23:36 Sodium 135 mmol/L (137-145) L 03/04/19 04:39 Potassium 4.1 mmol/L (3.6-5.0) 03/04/19 04:39 Chloride 101.9 mmol/L (98-107) 03/04/19 04:39 Carbon Dioxide 22 mmol/L (22-30) 03/04/19 04:39 Anion Gap 15 mmol/L 03/04/19 04:39 BUN 16 mg/dL (7-17) 03/04/19 04:39 Creatinine 0.7 mg/dL (0.7-1.2) 03/04/19 04:39 Estimated GFR > 60 ml/min 03/04/19 04:39 BUN/Creatinine Ratio 23 % 03/04/19 04:39 Glucose 294 mg/dL (65-100) H 03/04/19 04:39 POC Glucose 356 (70-105) H 03/04/19 11:34 Hemoglobin A1c 11.2 % (4-6) H 03/02/19 01:14 Calcium 8.4 mg/dL (8.4-10.2) 03/04/19 04:39 Phosphorus 4.10 mg/dL (2.5-4.5) 03/01/19 22:53 Magnesium 2.10 mg/dL (1.7-2.3) 03/01/19 22:53 Total Bilirubin 0.30 mg/dL (0.1-1.2) 03/01/19 22:53 AST 26 units/L (5-40) 03/01/19 22:53 ALT 28 units/L (7-56) 03/01/19 22:53 Alkaline Phosphatase 87 units/L (35-129) 03/01/19 22:53 Total Creatine Kinase 284 units/L (30-135) H 03/01/19 22:53 CK-MB (CK-2) 2.8 ng/mL (0.0-4.0) 03/01/19 22:53 CK-MB (CK-2) Rel Index 0.9 (0-4) 03/01/19 22:53 Troponin T < 0.010 ng/mL (0.00-0.029) 03/01/19 22:53 Total Protein 7.4 g/dL (6.3-8.2) 03/01/19 22:53 Albumin 3.6 g/dL (3.9-5) L 03/01/19 22:53 Albumin/Globulin Ratio 0.9 % 03/01/19 22:53 Triglycerides 112 mg/dL (2-149) 03/03/19 04:53 Cholesterol 190 mg/dL (50-199) 03/03/19 04:53 LDL Cholesterol Direct 150 mg/dL (50-130) H 03/03/19 04:53 HDL Cholesterol 42 mg/dL (40-59) 03/03/19 04:53 Cholesterol/HDL Ratio 4.52 % 03/03/19 04:53 Urine Color Colorless (Yellow) 03/01/19 22:50 Urine Turbidity Clear (Clear) 03/01/19 22:50 Urine pH 7.0 (5.0-7.0) 03/01/19 22:50 Ur Specific [place] 1.029 (1.003-1.030) 03/01/19 22:50 Urine Protein 30 mg/dl mg/dL (Negative) 03/01/19 22:50 Urine Glucose (UA) >=500 mg/dL (Negative) 03/01/19 22:50 Urine Ketones Tr mg/dL (Negative) 03/01/19 22:50 Urine Blood Sm (Negative) 03/01/19 22:50 Urine Nitrite Neg (Negative) 03/01/19 22:50 Urine Bilirubin Neg (Negative) 03/01/19 22:50 Urine Urobilinogen < 2.0 mg/dL (<2.0) 03/01/19 22:50 Ur Leukocyte Esterase Neg (Negative) 03/01/19 22:50 Urine WBC (Auto) 1.0 /HPF (0.0-6.0) 03/01/19 22:50 Urine RBC (Auto) 6.0 /HPF (0.0-6.0) 03/01/19 22:50 U Epithel Cells (Auto) 2.0 /HPF (0-13.0) 03/01/19 22:50 Urine Mucus Few /HPF 03/01/19 22:50 Active Medications - Current Medications Current Medications: Generic Name Dose Route Start Last Admin Trade Name Freq PRN Reason Stop Dose Admin Acetaminophen 650 mg 03/02/19 00:36 Tylenol PO Q4H PRN Pain MILD(1-3)/Fever >100.5/XIAO Atorvastatin Calcium 40 mg 03/02/19 22:00 03/03/19 22:14 Lipitor PO 40 mg QHS [facility] Administration Bisacodyl 10 mg 03/02/19 00:36 Dulcolax [place] QDAY PRN Constipation Clopidogrel Bisulfate 75 mg 03/03/19 10:00 03/04/19 09:15 Plavix PO 75 mg QDAY [facility] Administration Dextrose 50 ml 03/02/19 13:25 D50w (25gm) Syringe IV PRN PRN Hypoglycemia Famotidine 20 mg 03/02/19 10:00 03/04/19 09:15 Pepcid IV 20 mg BID INA Administration Hydralazine HCl 10 mg 03/02/19 00:36 Apresoline IV Q4HR PRN Hypertension Sodium Chloride 1,000 mls @ 75 mls/hr 03/03/19 23:00 Nacl 0.45% 1000 Ml IV DIRECT INA Insulin Glargine 20 units 03/03/19 12:01 03/03/19 22:14 Lantus SUB-Q 20 units QHS [facility] Administration Insulin Human Lispro 0 unit 03/04/19 07:30 03/04/19 12:15 Humalog SUB-Q 10 unit ACHS [facility] Administration Protocol Magnesium Hydroxide 30 ml 03/02/19 00:36 Milk Of Magnesia PO Q4H PRN Constipation Metoclopramide HCl 10 mg 03/02/19 00:36 Reglan PO Q6H PRN Nausea And Vomiting Metoprolol Tartrate 25 mg 03/02/19 10:00 03/04/19 09:15 Lopressor PO 25 mg BID INA Administration Ondansetron HCl 4 mg 03/02/19 00:36 Zofran IV Q8H PRN Nausea And Vomiting Promethazine HCl 25 mg 03/02/19 00:36 Phenergan [place] Q6H PRN Nausea And Vomiting Sodium Chloride 10 ml 03/02/19 10:00 03/04/19 09:16 Sodium Chloride Flush Syringe 10 Ml IV 10 ml BID INA Administration Sodium Chloride 10 ml 03/02/19 00:36 Sodium Chloride Flush Syringe 10 Ml IV PRN PRN LINE FLUSH Zolpidem Tartrate 5 mg 03/02/19 00:36 Ambien PO QHS PRN Insomnia Nutrition/Malnutrition Assess - Dietary Evaluation Nutrition/Malnutrition Findings: Nutrition Notes Start: 03/02/19 10:13 Freq: Status: Active Protocol: Document 03/02/19 10:13 SA (Rec: 03/02/19 10:23 SA [id number]) Co-Sign 03/02/19 10:13 LP Nutrition Notes Need for Assessment generated from: chiropractic neurologist,Education Initial or Follow up Assessment Current Diagnosis Diabetes,Hypertension,Stroke, Hyperlipidemia Other Pertinent Diagnosis left BKA Current Diet Cardiac Labs/Tests Na: 130 Cl: 91.4 Glu: 729 A1C: 11.2 Pertinent Medications Reviewed Height 5 ft 3 in Weight 76.3 kg [place] Body Weight (kg) 52.27 BMI 29.7 Weight Status Overweight Subjective/Other Information RN screen for new onset of diabetes. Patient explains she 's had diabetes for over 5 years. However, pt wanted refresher information on consistent CHO diet. Pt states appetite is good and eating 100% of meals. Pt unsure of UBW. Pt denies swallowing/ chewing difficulties. Pt denies N/V/D. Percent of energy/protein needs met: 100%/100% #1 Nutrition Diagnosis Food and nutrition-related knowledge deficit Etiology lack of motivation As Evidenced by Signs and Symptoms A1C:11.2 Is patient on ventilator? No Is Patient Ambulatory and/or Out of Bed Yes REE-([place] Jeor-ambulatory/OOB) [ 1621.269 NUTR.MSJOOB] Calculation Used for Recommendations [place] [facility] Additional Notes Protein: 1-1.2 g/kg (76-91 g/ day) Fluid: 1 ml/kcal Nutrition Intervention Change Diet Order: Add consistent CHO modification Teaching Recipient Patient Learning Readiness Good Teaching Methods Discussion,Handout Response to Teaching Verbalize understanding Education Handouts Provided Carbohydrate Counting for People with Diabetes Barriers to Learning No Barriers RD phone number provided Yes Patient aware of follow up options Yes Goal #1 Adhere to diet recommendations Anticipated Discharge Needs: Cardiac/Consistent CHO Revisit per MD consult or patient Sign Off request:
[2019-03-04] MEDS: NACL 0.45% 1000 ML 1,000 ML IV SCH (16:47)
[2019-03-04] MEDS: KEPPRA PO SCH (21:43)
[2019-03-04] MEDS: LANTUS SUB-Q SCH (22:21)
[2019-03-05] MEDS: NACL 0.45% 1000 ML 1,000 ML IV SCH ×2 (04:50→17:11)
[2019-03-05] MEDS: HumaLOG SUB-Q SCH ×4 (08:13→21:11)
[2019-03-05] MEDS: KEPPRA PO SCH ×2 (09:55→21:10)
[2019-03-05] MEDS: PEPCID IV SCH ×2 (09:55→21:10)
[2019-03-05] MEDS: PLAVIX PO SCH (09:55)
[2019-03-05] MEDS: LOPRESSOR PO SCH ×2 (09:55→21:09)
[2019-03-05] MEDS: SODIUM CHLORIDE FLUSH SYRINGE 10 ML IV SCH ×2 (09:55→21:12)
--- NOTE | 2019-03-05 11:07 | Progress Note ---
Assessment and Plan Assessment and plan: Acute CVA. CT scan of the head is negative. Await MRI, echocardiogram essentially normal with the exception of diastolic dysfunction, negative bubble study. Neurology consultation pending. Focal status epilepticus. Resolved. Patient reportedly presented with history of 2 days of weakness of left upper extremity with recurrent clonic activity of the left upper extremity. EEG normal. Continue Keppra 500 mg twice a day per neurology recommendations Accelerated hypertension. Continue Lopressor. Blood pressure better control with the addition of Norvasc Diabetes mellitus type 2, uncontrolled. Patient presented w/ glucose>700. Hemoglobin A1c 11.2. Continue sliding scale insulin and increase Lantus to 30 units Left BKA due to diabetes Hyperlipidemia. Continue with Lipitor Disposition. Physical therapy recommends KATHERINE, ovoid placement. History Interval history: No new issues overnight Hospitalist Physical - Constitutional Vitals: Temp Pulse Resp BP Pulse Ox 98.0 F 82 20 151/61 92 03/05/19 07:50 03/05/19 07:50 03/05/19 07:50 03/05/19 07:50 03/05/19 07:50 General appearance: Present: other (lethargic, somnolent) - EENT Eyes: Present: PERRL, EOM intact ENT: hearing intact, clear oral mucosa, dentition normal - Neck Neck: Present: supple, normal ROM - Respiratory Respiratory effort: normal Respiratory: bilateral: CTA - Cardiovascular Rhythm: regular Heart Sounds: Present: S1 & S2. Absent: gallop, rub - Extremities Extremities: no ischemia, No edema, Full ROM - Abdominal General gastrointestinal: soft, non-tender, non-distended, normal bowel sounds - Integumentary Integumentary: Present: clear, warm, dry - Neurologic Neurologic: CNII-XII intact, moves all extremities Results - Labs CBC & Chem 7: 03/04/19 04:39 03/04/19 04:39 Labs: Laboratory Last Values WBC 6.5 K/mm3 (4.5-11.0) 03/04/19 04:39 RBC 3.78 M/mm3 (3.65-5.03) 03/04/19 04:39 Hgb 10.7 gm/dl (10.1-14.3) 03/04/19 04:39 Hct 32.0 % (30.3-42.9) 03/04/19 04:39 MCV 85 fl (79-97) 03/04/19 04:39 MCH 28 pg (28-32) 03/04/19 04:39 MCHC 34 % (30-34) 03/04/19 04:39 RDW 13.9 % (13.2-15.2) 03/04/19 04:39 Plt Count 242 K/mm3 (140-440) 03/04/19 04:39 Lymph % (Auto) 23.5 % (13.4-35.0) 03/04/19 04:39 [place] % (Auto) 14.4 % (0.0-7.3) H 03/04/19 04:39 Eos % (Auto) 2.6 % (0.0-4.3) 03/04/19 04:39 Baso % (Auto) 0.6 % (0.0-1.8) 03/04/19 04:39 Lymph # 1.5 K/mm3 (1.2-5.4) 03/04/19 04:39 [place] # 0.9 K/mm3 (0.0-0.8) H 03/04/19 04:39 Eos # 0.2 K/mm3 (0.0-0.4) 03/04/19 04:39 Baso # 0.0 K/mm3 (0.0-0.1) 03/04/19 04:39 Seg Neutrophils % 58.9 % (40.0-70.0) 03/04/19 04:39 Seg Neutrophils # 3.8 K/mm3 (1.8-7.7) 03/04/19 04:39 PT 12.7 Sec. (12.2-14.9) 03/01/19 22:53 INR 0.90 (0.87-1.13) 03/01/19 22:53 APTT 22.1 Sec. (24.2-36.6) L 03/01/19 22:53 Thrombin Time 17.8 Sec. (15.1-19.6) 03/01/19 22:53 VBG pH 7.359 (7.320-7.420) 03/01/19 23:36 Sodium 135 mmol/L (137-145) L 03/04/19 04:39 Potassium 4.1 mmol/L (3.6-5.0) 03/04/19 04:39 Chloride 101.9 mmol/L (98-107) 03/04/19 04:39 Carbon Dioxide 22 mmol/L (22-30) 03/04/19 04:39 Anion Gap 15 mmol/L 03/04/19 04:39 BUN 16 mg/dL (7-17) 03/04/19 04:39 Creatinine 0.7 mg/dL (0.7-1.2) 03/04/19 04:39 Estimated GFR > 60 ml/min 03/04/19 04:39 BUN/Creatinine Ratio 23 % 03/04/19 04:39 Glucose 294 mg/dL (65-100) H 03/04/19 04:39 POC Glucose 269 (70-105) H 03/05/19 07:51 Hemoglobin A1c 11.2 % (4-6) H 03/02/19 01:14 Calcium 8.4 mg/dL (8.4-10.2) 03/04/19 04:39 Phosphorus 4.10 mg/dL (2.5-4.5) 03/01/19 22:53 Magnesium 2.10 mg/dL (1.7-2.3) 03/01/19 22:53 Total Bilirubin 0.30 mg/dL (0.1-1.2) 03/01/19 22:53 AST 26 units/L (5-40) 03/01/19 22:53 ALT 28 units/L (7-56) 03/01/19 22:53 Alkaline Phosphatase 87 units/L (35-129) 03/01/19 22:53 Total Creatine Kinase 284 units/L (30-135) H 03/01/19 22:53 CK-MB (CK-2) 2.8 ng/mL (0.0-4.0) 03/01/19 22:53 CK-MB (CK-2) Rel Index 0.9 (0-4) 03/01/19 22:53 Troponin T < 0.010 ng/mL (0.00-0.029) 03/01/19 22:53 Total Protein 7.4 g/dL (6.3-8.2) 03/01/19 22:53 Albumin 3.6 g/dL (3.9-5) L 03/01/19 22:53 Albumin/Globulin Ratio 0.9 % 03/01/19 22:53 Triglycerides 112 mg/dL (2-149) 03/03/19 04:53 Cholesterol 190 mg/dL (50-199) 03/03/19 04:53 LDL Cholesterol Direct 150 mg/dL (50-130) H 03/03/19 04:53 HDL Cholesterol 42 mg/dL (40-59) 03/03/19 04:53 Cholesterol/HDL Ratio 4.52 % 03/03/19 04:53 Urine Color Colorless (Yellow) 03/01/19 22:50 Urine Turbidity Clear (Clear) 03/01/19 22:50 Urine pH 7.0 (5.0-7.0) 03/01/19 22:50 Ur Specific [place] 1.029 (1.003-1.030) 03/01/19 22:50 Urine Protein 30 mg/dl mg/dL (Negative) 03/01/19 22:50 Urine Glucose (UA) >=500 mg/dL (Negative) 03/01/19 22:50 Urine Ketones Tr mg/dL (Negative) 03/01/19 22:50 Urine Blood Sm (Negative) 03/01/19 22:50 Urine Nitrite Neg (Negative) 03/01/19 22:50 Urine Bilirubin Neg (Negative) 03/01/19 22:50 Urine Urobilinogen < 2.0 mg/dL (<2.0) 03/01/19 22:50 Ur Leukocyte Esterase Neg (Negative) 03/01/19 22:50 Urine WBC (Auto) 1.0 /HPF (0.0-6.0) 03/01/19 22:50 Urine RBC (Auto) 6.0 /HPF (0.0-6.0) 03/01/19 22:50 U Epithel Cells (Auto) 2.0 /HPF (0-13.0) 03/01/19 22:50 Urine Mucus Few /HPF 03/01/19 22:50 Active Medications - Current Medications Current Medications: Generic Name Dose Route Start Last Admin Trade Name Freq PRN Reason Stop Dose Admin Acetaminophen 650 mg 03/02/19 00:36 Tylenol PO Q4H PRN Pain MILD(1-3)/Fever >100.5/XIAO Atorvastatin Calcium 40 mg 03/02/19 22:00 03/04/19 21:43 Lipitor PO 40 mg QHS INA Administration Bisacodyl 10 mg 03/02/19 00:36 Dulcolax [place] QDAY PRN Constipation Clopidogrel Bisulfate 75 mg 03/03/19 10:00 03/05/19 09:55 Plavix PO 75 mg QDAY INA Administration Dextrose 50 ml 03/02/19 13:25 D50w (25gm) Syringe IV PRN PRN Hypoglycemia Famotidine 20 mg 03/02/19 10:00 03/05/19 09:55 Pepcid IV 20 mg BID INA Administration Hydralazine HCl 10 mg 03/02/19 00:36 Apresoline IV Q4HR PRN Hypertension Sodium Chloride 1,000 mls @ 75 mls/hr 03/03/19 23:00 03/05/19 04:50 Nacl 0.45% 1000 Ml IV 75 mls/hr DIRECT INA Administration Insulin Glargine 20 units 03/03/19 12:01 03/04/19 22:21 Lantus SUB-Q 20 units QHS INA Administration Insulin Human Lispro 0 unit 03/04/19 07:30 03/05/19 08:13 Humalog SUB-Q 6 unit ACHS INA Administration Protocol Levetiracetam 500 mg 03/04/19 22:00 03/05/19 09:55 Keppra PO 500 mg BID INA Administration Magnesium Hydroxide 30 ml 03/02/19 00:36 Milk Of Magnesia PO Q4H PRN Constipation Metoclopramide HCl 10 mg 03/02/19 00:36 Reglan PO Q6H PRN Nausea And Vomiting Metoprolol Tartrate 25 mg 03/02/19 10:00 03/05/19 09:55 Lopressor PO 25 mg BID INA Administration Ondansetron HCl 4 mg 03/02/19 00:36 Zofran IV Q8H PRN Nausea And Vomiting Promethazine HCl 25 mg 03/02/19 00:36 Phenergan [place] Q6H PRN Nausea And Vomiting Sodium Chloride 10 ml 03/02/19 10:00 03/05/19 09:55 Sodium Chloride Flush Syringe 10 Ml IV 10 ml BID INA Administration Sodium Chloride 10 ml 03/02/19 00:36 Sodium Chloride Flush Syringe 10 Ml IV PRN PRN LINE FLUSH Zolpidem Tartrate 5 mg 03/02/19 00:36 Ambien PO QHS PRN Insomnia Nutrition/Malnutrition Assess - Dietary Evaluation Nutrition/Malnutrition Findings: Nutrition Notes Start: 03/02/19 10:13 Freq: Status: Active Protocol: Document 03/02/19 10:13 SA (Rec: 03/02/19 10:23 SA [id number]) Co-Sign 03/02/19 10:13 LP Nutrition Notes Need for Assessment generated from: fruit or nut grower,Education Initial or Follow up Assessment Current Diagnosis Diabetes,Hypertension,Stroke, Hyperlipidemia Other Pertinent Diagnosis left BKA Current Diet Cardiac Labs/Tests Na: 130 Cl: 91.4 Glu: 729 A1C: 11.2 Pertinent Medications Reviewed Height 5 ft 3 in Weight 76.3 kg [place] Body Weight (kg) 52.27 BMI 29.7 Weight Status Overweight Subjective/Other Information RN screen for new onset of diabetes. Patient explains she 's had diabetes for over 5 years. However, pt wanted refresher information on consistent CHO diet. Pt states appetite is good and eating 100% of meals. Pt unsure of UBW. Pt denies swallowing/ chewing difficulties. Pt denies N/V/D. Percent of energy/protein needs met: 100%/100% #1 Nutrition Diagnosis Food and nutrition-related knowledge deficit Etiology lack of motivation As Evidenced by Signs and Symptoms A1C:11.2 Is patient on ventilator? No Is Patient Ambulatory and/or Out of Bed Yes REE-([facility]-ambulatory/OOB) [ 1621.269 NUTR.MSJOOB] Calculation Used for Recommendations [facility] Additional Notes Protein: 1-1.2 g/kg (76-91 g/ day) Fluid: 1 ml/kcal Nutrition Intervention Change Diet Order: Add consistent CHO modification Teaching Recipient Patient Learning Readiness Good Teaching Methods Discussion,Handout Response to Teaching Verbalize understanding Education Handouts Provided Carbohydrate Counting for People with Diabetes Barriers to Learning No Barriers RD phone number provided Yes Patient aware of follow up options Yes Goal #1 Adhere to diet recommendations Anticipated Discharge Needs: Cardiac/Consistent CHO Revisit per MD consult or patient Sign Off request:
[2019-03-05] MEDS: LANTUS SUB-Q SCH (21:10)
[2019-03-06] MEDS: NACL 0.45% 1000 ML 1,000 ML IV SCH ×2 (05:26→18:39)
[2019-03-06] MEDS: HumaLOG SUB-Q SCH ×4 (08:30→21:57)
[2019-03-06] MEDS: KEPPRA PO SCH ×2 (09:42→21:56)
[2019-03-06] MEDS: PEPCID IV SCH (09:42)
[2019-03-06] MEDS: LOPRESSOR PO SCH ×2 (09:42→21:56)
[2019-03-06] MEDS: SODIUM CHLORIDE FLUSH SYRINGE 10 ML IV SCH ×2 (09:42→21:58)
[2019-03-06] MEDS: PLAVIX PO SCH (09:42)
--- NOTE | 2019-03-06 09:44 | Progress Note ---
Assessment and Plan Assessment and plan: Acute CVA. CT scan of the head is negative. Await MRI, echocardiogram essentially normal with the exception of diastolic dysfunction, negative bubble study. Neurology consultation pending. Focal status epilepticus. Resolved. No new activity. Patient reportedly presented with history of 2 days of weakness of left upper extremity with recurrent clonic activity of the left upper extremity. EEG normal. Continue Keppra 500 mg twice a day per neurology recommendations Accelerated hypertension. Continue Lopressor. Blood pressure better control with the addition of Norvasc Diabetes mellitus type 2, uncontrolled. Patient presented w/ glucose>700. Hemoglobin A1c 11.2. Continue sliding scale insulin and increased Lantus to 30 units History of Left BKA Hyperlipidemia. Continue with Lipitor Disposition. Physical therapy recommends KATHERINE, await placement. History Interval history: No new issues overnight Hospitalist Physical - Constitutional Vitals: Temp Pulse Resp BP Pulse Ox 98.2 F 89 18 145/70 93 03/06/19 08:54 03/06/19 08:54 03/06/19 08:54 03/06/19 08:54 03/06/19 08:54 General appearance: Present: other (lethargic, somnolent) - EENT Eyes: Present: PERRL, EOM intact ENT: hearing intact, clear oral mucosa, dentition normal - Neck Neck: Present: supple, normal ROM - Respiratory Respiratory effort: normal Respiratory: bilateral: CTA - Cardiovascular Rhythm: regular Heart Sounds: Present: S1 & S2. Absent: gallop, rub - Extremities Extremities: no ischemia, No edema, Full ROM - Abdominal General gastrointestinal: soft, non-tender, non-distended, normal bowel sounds - Integumentary Integumentary: Present: clear, warm, dry - Neurologic Neurologic: CNII-XII intact, moves all extremities Results - Labs CBC & Chem 7: 03/04/19 04:39 03/04/19 04:39 Labs: Laboratory Last Values WBC 6.5 K/mm3 (4.5-11.0) 03/04/19 04:39 RBC 3.78 M/mm3 (3.65-5.03) 03/04/19 04:39 Hgb 10.7 gm/dl (10.1-14.3) 03/04/19 04:39 Hct 32.0 % (30.3-42.9) 03/04/19 04:39 MCV 85 fl (79-97) 03/04/19 04:39 MCH 28 pg (28-32) 03/04/19 04:39 MCHC 34 % (30-34) 03/04/19 04:39 RDW 13.9 % (13.2-15.2) 03/04/19 04:39 Plt Count 242 K/mm3 (140-440) 03/04/19 04:39 Lymph % (Auto) 23.5 % (13.4-35.0) 03/04/19 04:39 [place] % (Auto) 14.4 % (0.0-7.3) H 03/04/19 04:39 Eos % (Auto) 2.6 % (0.0-4.3) 03/04/19 04:39 Baso % (Auto) 0.6 % (0.0-1.8) 03/04/19 04:39 Lymph # 1.5 K/mm3 (1.2-5.4) 03/04/19 04:39 [place] # 0.9 K/mm3 (0.0-0.8) H 03/04/19 04:39 Eos # 0.2 K/mm3 (0.0-0.4) 03/04/19 04:39 Baso # 0.0 K/mm3 (0.0-0.1) 03/04/19 04:39 Seg Neutrophils % 58.9 % (40.0-70.0) 03/04/19 04:39 Seg Neutrophils # 3.8 K/mm3 (1.8-7.7) 03/04/19 04:39 PT 12.7 Sec. (12.2-14.9) 03/01/19 22:53 INR 0.90 (0.87-1.13) 03/01/19 22:53 APTT 22.1 Sec. (24.2-36.6) L 03/01/19 22:53 Thrombin Time 17.8 Sec. (15.1-19.6) 03/01/19 22:53 VBG pH 7.359 (7.320-7.420) 03/01/19 23:36 Sodium 135 mmol/L (137-145) L 03/04/19 04:39 Potassium 4.1 mmol/L (3.6-5.0) 03/04/19 04:39 Chloride 101.9 mmol/L (98-107) 03/04/19 04:39 Carbon Dioxide 22 mmol/L (22-30) 03/04/19 04:39 Anion Gap 15 mmol/L 03/04/19 04:39 BUN 16 mg/dL (7-17) 03/04/19 04:39 Creatinine 0.7 mg/dL (0.7-1.2) 03/04/19 04:39 Estimated GFR > 60 ml/min 03/04/19 04:39 BUN/Creatinine Ratio 23 % 03/04/19 04:39 Glucose 294 mg/dL (65-100) H 03/04/19 04:39 POC Glucose 267 (70-105) H 03/06/19 07:36 Hemoglobin A1c 11.2 % (4-6) H 03/02/19 01:14 Calcium 8.4 mg/dL (8.4-10.2) 03/04/19 04:39 Phosphorus 4.10 mg/dL (2.5-4.5) 03/01/19 22:53 Magnesium 2.10 mg/dL (1.7-2.3) 03/01/19 22:53 Total Bilirubin 0.30 mg/dL (0.1-1.2) 03/01/19 22:53 AST 26 units/L (5-40) 03/01/19 22:53 ALT 28 units/L (7-56) 03/01/19 22:53 Alkaline Phosphatase 87 units/L (35-129) 03/01/19 22:53 Total Creatine Kinase 284 units/L (30-135) H 03/01/19 22:53 CK-MB (CK-2) 2.8 ng/mL (0.0-4.0) 03/01/19 22:53 CK-MB (CK-2) Rel Index 0.9 (0-4) 03/01/19 22:53 Troponin T < 0.010 ng/mL (0.00-0.029) 03/01/19 22:53 Total Protein 7.4 g/dL (6.3-8.2) 03/01/19 22:53 Albumin 3.6 g/dL (3.9-5) L 03/01/19 22:53 Albumin/Globulin Ratio 0.9 % 03/01/19 22:53 Triglycerides 112 mg/dL (2-149) 03/03/19 04:53 Cholesterol 190 mg/dL (50-199) 03/03/19 04:53 LDL Cholesterol Direct 150 mg/dL (50-130) H 03/03/19 04:53 HDL Cholesterol 42 mg/dL (40-59) 03/03/19 04:53 Cholesterol/HDL Ratio 4.52 % 03/03/19 04:53 Urine Color Colorless (Yellow) 03/01/19 22:50 Urine Turbidity Clear (Clear) 03/01/19 22:50 Urine pH 7.0 (5.0-7.0) 03/01/19 22:50 Ur Specific [place] 1.029 (1.003-1.030) 03/01/19 22:50 Urine Protein 30 mg/dl mg/dL (Negative) 03/01/19 22:50 Urine Glucose (UA) >=500 mg/dL (Negative) 03/01/19 22:50 Urine Ketones Tr mg/dL (Negative) 03/01/19 22:50 Urine Blood Sm (Negative) 03/01/19 22:50 Urine Nitrite Neg (Negative) 03/01/19 22:50 Urine Bilirubin Neg (Negative) 03/01/19 22:50 Urine Urobilinogen < 2.0 mg/dL (<2.0) 03/01/19 22:50 Ur Leukocyte Esterase Neg (Negative) 03/01/19 22:50 Urine WBC (Auto) 1.0 /HPF (0.0-6.0) 03/01/19 22:50 Urine RBC (Auto) 6.0 /HPF (0.0-6.0) 03/01/19 22:50 U Epithel Cells (Auto) 2.0 /HPF (0-13.0) 03/01/19 22:50 Urine Mucus Few /HPF 03/01/19 22:50 Active Medications - Current Medications Current Medications: Generic Name Dose Route Start Last Admin Trade Name Freq PRN Reason Stop Dose Admin Acetaminophen 650 mg 03/02/19 00:36 Tylenol PO Q4H PRN Pain MILD(1-3)/Fever >100.5/XIAO Atorvastatin Calcium 40 mg 03/02/19 22:00 03/05/19 21:10 Lipitor PO 40 mg QHS INA Administration Bisacodyl 10 mg 03/02/19 00:36 Dulcolax [place] QDAY PRN Constipation Clopidogrel Bisulfate 75 mg 03/03/19 10:00 03/05/19 09:55 Plavix PO 75 mg QDAY INA Administration Dextrose 50 ml 03/02/19 13:25 D50w (25gm) Syringe IV PRN PRN Hypoglycemia Famotidine 20 mg 03/02/19 10:00 03/05/19 21:10 Pepcid IV 20 mg BID INA Administration Hydralazine HCl 10 mg 03/02/19 00:36 Apresoline IV Q4HR PRN Hypertension Sodium Chloride 1,000 mls @ 75 mls/hr 03/03/19 23:00 03/06/19 05:26 Nacl 0.45% 1000 Ml IV 75 mls/hr DIRECT INA Administration Insulin Glargine 30 units 03/05/19 11:07 03/05/19 21:10 Lantus SUB-Q 30 units QHS INA Administration Insulin Human Lispro 0 unit 03/04/19 07:30 03/05/19 21:11 Humalog SUB-Q 6 unit ACHS INA Administration Protocol Levetiracetam 500 mg 03/04/19 22:00 03/05/19 21:10 Keppra PO 500 mg BID INA Administration Magnesium Hydroxide 30 ml 03/02/19 00:36 Milk Of Magnesia PO Q4H PRN Constipation Metoclopramide HCl 10 mg 03/02/19 00:36 Reglan PO Q6H PRN Nausea And Vomiting Metoprolol Tartrate 25 mg 03/02/19 10:00 03/05/19 21:09 Lopressor PO 25 mg BID INA Administration Ondansetron HCl 4 mg 03/02/19 00:36 Zofran IV Q8H PRN Nausea And Vomiting Promethazine HCl 25 mg 03/02/19 00:36 Phenergan LA Q6H PRN Nausea And Vomiting Sodium Chloride 10 ml 03/02/19 10:00 03/05/19 21:12 Sodium Chloride Flush Syringe 10 Ml IV 10 ml BID INA Administration Sodium Chloride 10 ml 03/02/19 00:36 Sodium Chloride Flush Syringe 10 Ml IV PRN PRN LINE FLUSH Zolpidem Tartrate 5 mg 03/02/19 00:36 Ambien PO QHS PRN Insomnia Nutrition/Malnutrition Assess - Dietary Evaluation Nutrition/Malnutrition Findings: Nutrition Notes Start: 03/02/19 10:13 Freq: Status: Active Protocol: Document 03/02/19 10:13 (Rec: 03/02/19 10:23 SA [id number]) Co-Sign 03/02/19 10:13 LP Nutrition Notes 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 Patient explains she 's had diabetes for over 5 years. However, pt wanted refresher information on consistent CHO diet. Pt states appetite is good and eating 100% of meals. Pt unsure of UBW. Pt denies swallowing/ chewing difficulties. Pt denies N/V/D. Percent of energy/protein needs met: 100%/100% #1 Nutrition Diagnosis Food and nutrition-related knowledge deficit Etiology lack of motivation As Evidenced by Signs and Symptoms A1C:11.2 Is patient on ventilator? No Is Patient Ambulatory and/or Out of Bed Yes REE-([facility]-amb[facility]/OOB) [ 1621.269 NUTR.MSJOOB] Calculation Used for Recommendations [facility] Additional Notes Protein: 1-1.2 g/kg (76-91 g/ day) Fluid: 1 ml/kcal Nutrition Intervention Change Diet Order: Add consistent CHO modification Teaching Recipient Patient Learning Readiness Good Teaching Methods Discussion,Handout Response to Teaching Verbalize understanding Education Handouts Provided Carbohydrate Counting for People with Diabetes Barriers to Learning No Barriers RD phone number provided Yes Patient aware of follow up options Yes Goal #1 Adhere to diet recommendations Anticipated Discharge Needs: Cardiac/Consistent CHO Revisit per MD consult or patient Sign Off request:
--- NOTE | 2019-03-06 11:05 | Magnetic Resonance Report ---
PROCEDURE: MR MRA/MRV HEAD WO CON TECHNIQUE: Axial 3-D [id number] MR angiography of the [place] and brain was performed. The source images were reconstructed in various views using maximum intensity projection. HISTORY: stroke COMPARISONS: None currently available. FINDINGS: Carotid Siphon: Mild to moderate disease. Anterior Cerebral: Unremarkable. Middle Cerebral: Unremarkable. Posterior Cerebral: Unremarkable. Basilar: Unremarkable. Intracranial Vertebral Arteries: Unremarkable. There is no aneurysm, dissection, vascular malformation, or significant vascular stenosis. There is n o evidence for vasculitis. IMPRESSION: * Unremarkable MRA of the head. This document is electronically signed by Gage Arndt MD., March 06 2019 11:02:27 AM ET
[2019-03-06] MEDS: PEPCID PO SCH (21:57)
[2019-03-06] MEDS: LANTUS SUB-Q SCH (21:57)
[2019-03-07 06:02] LABS: Basophils % (Auto) 0.5 % (0.0-1.8); Eosinophils # (Auto) 0.2 K/mm3 (0.0-0.4); Eosinophils % (Auto) 2.7 % (0.0-4.3); Hematocrit 31.9 % (30.3-42.9); Hemoglobin 10.8 gm/dl (10.1-14.3); Lymphocytes # (Auto) 1.6 K/mm3 (1.2-5.4); Lymphocytes % (Auto) 23.9 % (13.4-35.0); Mean Corpuscular HGB Conc 34 % (30-34); Mean Corpuscular Volume 85 fl (79-97); Monocytes % (Auto) 15.9 % (0.0-7.3); Platelet Count 269 K/mm3 (140-440); Red Blood Count 3.78 M/mm3 (3.65-5.03); Red Cell Distribution Width 13.9 % (13.2-15.2)
[2019-03-07] MEDS: NACL 0.45% 1000 ML 1,000 ML IV SCH (06:11)
[2019-03-07 06:20] LABS: BUN/Creatinine Ratio 20; Blood Urea Nitrogen 10 mg/dL (7-17); Calcium 8.7 mg/dL (8.4-10.2); Hemolysis Index 5
[2019-03-07] MEDS: HumaLOG SUB-Q SCH ×2 (09:32→12:41)
[2019-03-07] MEDS: PEPCID PO SCH (09:50)
[2019-03-07] MEDS: LOPRESSOR PO SCH (09:50)
[2019-03-07] MEDS: KEPPRA PO SCH (09:51)
[2019-03-07] MEDS: SODIUM CHLORIDE FLUSH SYRINGE 10 ML IV SCH (10:20)
[2019-03-07] MEDS: PLAVIX PO SCH (10:20)
[2019-03-07 12:34] VITALS: BP 148/74
--- NOTE | 2019-03-07 13:42 | Progress Note ---
Assessment and Plan Assessment and plan: Acute CVA. CT scan of the head is negative. MRA negative, echo no thrombus Neurology consult appreciated Focal status epilepticus. Resolved. No new activity. Patient reportedly presented with history of 2 days of weakness of left upper extremity with recurrent clonic activity of the left upper extremity. EEG normal. Continue Keppra 500 mg twice a day per neurology recommendations Accelerated hypertension. Continue Lopressor. Blood pressure better control with the addition of Norvasc Diabetes mellitus type 2, uncontrolled. Patient presented w/ glucose>700. Hemoglobin A1c 11.2. Continue sliding scale insulin and increased Lantus to 30 units History of Left BKA Hyperlipidemia. Continue with Lipitor Disposition. Physical therapy recommends KATHERINE, await placement. History Interval history: Patient was seen and evaluated this morning, patient was alert and oriented, didn't have new complaints. Hospitalist Physical - Physical exam Narrative exam: Not in cardiopulmonary distress. The patient appeared well nourished and normally developed. Vital signs as documented. Head exam is unremarkable. No scleral icterus . Neck is without jugular venous distension, thyromegaly, or carotid bruits. Lungs are clear to auscultation. Cardiac exam reveals regular rate and Rhythm. First and second heart sounds normal. No murmurs, rubs or gallops. Abdominal exam reveals normal bowel sounds, no masses, no organomegaly and no aortic enlargement. Extremities Lt BKA RN RELIEF CHARGE: Alert and oriented 3. - Constitutional Vitals: Temp Pulse Resp BP Pulse Ox 99.1 F 77 18 148/74 96 03/07/19 12:29 03/07/19 12:29 03/07/19 12:29 03/07/19 12:29 03/07/19 12:29 General appearance: Present: other (lethargic, somnolent) Results - Labs CBC & Chem 7: 03/07/19 04:56 03/07/19 04:56 Labs: Laboratory Last Values WBC 6.6 K/mm3 (4.5-11.0) 03/07/19 04:56 RBC 3.78 M/mm3 (3.65-5.03) 03/07/19 04:56 Hgb 10.8 gm/dl (10.1-14.3) 03/07/19 04:56 Hct 31.9 % (30.3-42.9) 03/07/19 04:56 MCV 85 fl (79-97) 03/07/19 04:56 MCH 29 pg (28-32) 03/07/19 04:56 MCHC 34 % (30-34) 03/07/19 04:56 RDW 13.9 % (13.2-15.2) 03/07/19 04:56 Plt Count 269 K/mm3 (140-440) 03/07/19 04:56 Lymph % (Auto) 23.9 % (13.4-35.0) 03/07/19 04:56 [place] % (Auto) 15.9 % (0.0-7.3) H 03/07/19 04:56 Eos % (Auto) 2.7 % (0.0-4.3) 03/07/19 04:56 Baso % (Auto) 0.5 % (0.0-1.8) 03/07/19 04:56 Lymph # 1.6 K/mm3 (1.2-5.4) 03/07/19 04:56 [place] # 1.0 K/mm3 (0.0-0.8) H 03/07/19 04:56 Eos # 0.2 K/mm3 (0.0-0.4) 03/07/19 04:56 Baso # 0.0 K/mm3 (0.0-0.1) 03/07/19 04:56 Seg Neutrophils % 57.0 % (40.0-70.0) 03/07/19 04:56 Seg Neutrophils # 3.7 K/mm3 (1.8-7.7) 03/07/19 04:56 PT 12.7 Sec. (12.2-14.9) 03/01/19 22:53 INR 0.90 (0.87-1.13) 03/01/19 22:53 APTT 22.1 Sec. (24.2-36.6) L 03/01/19 22:53 Thrombin Time 17.8 Sec. (15.1-19.6) 03/01/19 22:53 VBG pH 7.359 (7.320-7.420) 03/01/19 23:36 Sodium 141 mmol/L (137-145) 03/07/19 04:56 Potassium 4.4 mmol/L (3.6-5.0) 03/07/19 04:56 Chloride 105.2 mmol/L (98-107) 03/07/19 04:56 Carbon Dioxide 25 mmol/L (22-30) 03/07/19 04:56 Anion Gap 15 mmol/L 03/07/19 04:56 BUN 10 mg/dL (7-17) 03/07/19 04:56 Creatinine 0.5 mg/dL (0.7-1.2) L 03/07/19 04:56 Estimated GFR > 60 ml/min 03/07/19 04:56 BUN/Creatinine Ratio 20 % 03/07/19 04:56 Glucose 99 mg/dL (65-100) 03/07/19 04:56 POC Glucose 86 (70-105) 03/07/19 09:14 Hemoglobin A1c 11.2 % (4-6) H 03/02/19 01:14 Calcium 8.7 mg/dL (8.4-10.2) 03/07/19 04:56 Phosphorus 4.10 mg/dL (2.5-4.5) 03/01/19 22:53 Magnesium 2.10 mg/dL (1.7-2.3) 03/01/19 22:53 Total Bilirubin 0.30 mg/dL (0.1-1.2) 03/01/19 22:53 AST 26 units/L (5-40) 03/01/19 22:53 ALT 28 units/L (7-56) 03/01/19 22:53 Alkaline Phosphatase 87 units/L (35-129) 03/01/19 22:53 Total Creatine Kinase 284 units/L (30-135) H 03/01/19 22:53 CK-MB (CK-2) 2.8 ng/mL (0.0-4.0) 03/01/19 22:53 CK-MB (CK-2) Rel Index 0.9 (0-4) 03/01/19 22:53 Troponin T < 0.010 ng/mL (0.00-0.029) 03/01/19 22:53 Total Protein 7.4 g/dL (6.3-8.2) 03/01/19 22:53 Albumin 3.6 g/dL (3.9-5) L 03/01/19 22:53 Albumin/Globulin Ratio 0.9 % 03/01/19 22:53 Triglycerides 112 mg/dL (2-149) 03/03/19 04:53 Cholesterol 190 mg/dL (50-199) 03/03/19 04:53 LDL Cholesterol Direct 150 mg/dL (50-130) H 03/03/19 04:53 HDL Cholesterol 42 mg/dL (40-59) 03/03/19 04:53 Cholesterol/HDL Ratio 4.52 % 03/03/19 04:53 Urine Color Colorless (Yellow) 03/01/19 22:50 Urine Turbidity Clear (Clear) 03/01/19 22:50 Urine pH 7.0 (5.0-7.0) 03/01/19 22:50 Ur Specific [place] 1.029 (1.003-1.030) 03/01/19 22:50 Urine Protein 30 mg/dl mg/dL (Negative) 03/01/19 22:50 Urine Glucose (UA) >=500 mg/dL (Negative) 03/01/19 22:50 Urine Ketones Tr mg/dL (Negative) 03/01/19 22:50 Urine Blood Sm (Negative) 03/01/19 22:50 Urine Nitrite Neg (Negative) 03/01/19 22:50 Urine Bilirubin Neg (Negative) 03/01/19 22:50 Urine Urobilinogen < 2.0 mg/dL (<2.0) 03/01/19 22:50 Ur Leukocyte Esterase Neg (Negative) 03/01/19 22:50 Urine WBC (Auto) 1.0 /HPF (0.0-6.0) 03/01/19 22:50 Urine RBC (Auto) 6.0 /HPF (0.0-6.0) 03/01/19 22:50 U Epithel Cells (Auto) 2.0 /HPF (0-13.0) 03/01/19 22:50 Urine Mucus Few /HPF 03/01/19 22:50 Active Medications - Current Medications Current Medications: Generic Name Dose Route Start Last Admin Trade Name Freq PRN Reason Stop Dose Admin Acetaminophen 650 mg 03/02/19 00:36 Tylenol PO Q4H PRN Pain MILD(1-3)/Fever >100.5/XIAO Atorvastatin Calcium 40 mg 03/02/19 22:00 03/06/19 21:56 Lipitor PO 40 mg QHS INA Administration Bisacodyl 10 mg 03/02/19 00:36 Dulcolax [place] QDAY PRN Constipation Clopidogrel Bisulfate 75 mg 03/03/19 10:00 03/07/19 10:20 Plavix PO 75 mg QDAY INA Administration Dextrose 50 ml 03/02/19 13:25 D50w (25gm) Syringe IV PRN PRN Hypoglycemia Famotidine 20 mg 03/06/19 22:00 03/07/19 09:50 Pepcid PO 20 mg BID INA Administration Hydralazine HCl 10 mg 03/02/19 00:36 Apresoline IV Q4HR PRN Hypertension Sodium Chloride 1,000 mls @ 75 mls/hr 03/03/19 23:00 03/07/19 06:11 Nacl 0.45% 1000 Ml IV 75 mls/hr DIRECT INA Administration Insulin Glargine 30 units 03/05/19 11:07 03/06/19 21:57 Lantus SUB-Q 30 units QHS INA Administration Insulin Human Lispro 0 unit 03/04/19 07:30 03/07/19 12:41 Humalog SUB-Q 4 unit ACHS INA Administration Protocol Levetiracetam 500 mg 03/04/19 22:00 03/07/19 09:51 Keppra PO 500 mg BID INA Administration Magnesium Hydroxide 30 ml 03/02/19 00:36 Milk Of Magnesia PO Q4H PRN Constipation Metoclopramide HCl 10 mg 03/02/19 00:36 Reglan PO Q6H PRN Nausea And Vomiting Metoprolol Tartrate 25 mg 03/02/19 10:00 03/07/19 09:50 Lopressor PO 25 mg BID INA Administration Mupirocin 1 applic 03/07/19 14:00 Bactroban 2% NS BID INA Ondansetron HCl 4 mg 03/02/19 00:36 Zofran IV Q8H PRN Nausea And Vomiting Promethazine HCl 25 mg 03/02/19 00:36 Phenergan [place] Q6H PRN Nausea And Vomiting Sodium Chloride 10 ml 03/02/19 10:00 03/07/19 10:20 Sodium Chloride Flush Syringe 10 Ml IV 10 ml BID INA Administration Sodium Chloride 10 ml 03/02/19 00:36 Sodium Chloride Flush Syringe 10 Ml IV PRN PRN LINE FLUSH Zolpidem Tartrate 5 mg 03/02/19 00:36 Ambien PO QHS PRN Insomnia Nutrition/Malnutrition Assess - Dietary Evaluation Nutrition/Malnutrition Findings: Nutrition Notes Start: 03/02/19 10:13 Freq: Status: Active Protocol: Document 03/02/19 10:13 SA (Rec: 03/02/19 10:23 SA [id number]) Co-Sign 03/02/19 10:13 LP Nutrition Notes Need for Assessment 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 Patient explains she 's had diabetes for over 5 years. However, pt wanted refresher information on consistent CHO diet. Pt states appetite is good and eating 100% of meals. Pt unsure of UBW. Pt denies swallowing/ chewing difficulties. Pt denies N/V/D. Percent of energy/protein needs met: 100%/100% #1 Nutrition Diagnosis Food and nutrition-related knowledge deficit Etiology lack of motivation As Evidenced by Signs and Symptoms A1C:11.2 Is patient on ventilator? No Is Patient Ambulatory and/or Out of Bed Yes REE-([facility]-ambulatory/OOB) [ 1621.269 NUTR.MSJOOB] Calculation Used for Recommendations [facility] Additional Notes Protein: 1-1.2 g/kg (76-91 g/ day) Fluid: 1 ml/kcal Nutrition Intervention Change Diet Order: Add consistent CHO modification Teaching Recipient Patient Learning Readiness Good Teaching Methods Discussion,Handout Response to Teaching Verbalize understanding Education Handouts Provided Carbohydrate Counting for People with Diabetes Barriers to Learning No Barriers RD phone number provided Yes Patient aware of follow up options Yes Goal #1 Adhere to diet recommendations Anticipated Discharge Needs: Cardiac/Consistent CHO Revisit per MD consult or patient Sign Off request:
[2019-03-07] MEDS ORDERED: BACTROBAN 2% NS SCH (14:00)
--- NOTE | 2019-03-07 16:03 | Discharge Summary ---
Providers - Providers Date of Admission: 03/02/19 00:36 Attending physician: BIANCA OLIVAREZ MD 03/02/19 00:39 Consult to Case Management [CONS] Routine Services Needed at Discharge: Physical Therapy Notified:: case management Additional Physician Instructions: for DC plan Occupational Therapy Evaluate and Treat [CONS] Routine Comment: Reason For Exam: Neuro deficits Physical Therapy Evaluation and Treat [CONS] Routine Comment: Pt with focal seizures, left amputee. Reason For Exam: Neuro deficits 03/03/19 09:40 Consult to Physician [CONS] Routine Comment: Consulting Provider: KIMBERLY TAYLOR Physician Instructions: Reason For Exam: cva, sz 03/03/19 14:31 Occupational Therapy Evaluate and Treat [CONS] Routine Comment: Reason For Exam: pt. with focal seizures, left amputee. 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 Hospital course: Acute CVA. CT scan of the head is negative. MRA negative, echo no thrombus. patient didn't have acute CVA. Neurology consult appreciated Focal status epilepticus. Resolved. No new activity. Patient reportedly presented with history of 2 days of weakness of left upper extremity with recurrent clonic activity of the left upper extremity. EEG normal. Continue Keppra 500 mg twice a day per neurology recommendations Accelerated hypertension. Continue Lopressor. Blood pressure better control with the addition of Norvasc. Diabetes mellitus type 2, uncontrolled. Patient presented w/ glucose>700. Hemoglobin A1c 11.2. Continue sliding scale insulin and increased Lantus to 30 units. History of Left BKA Hyperlipidemia. Continue with Lipitor Patient discharged to SNF. Disposition: DC/[place]-03 SNF [facility] Time spent for discharge: 32 minutes - Discharge Diagnoses (1) Involuntary movements Status: Acute (2) Seizure cerebral Status: Acute (3) HTN (hypertension) Status: Acute Qualifiers: Hypertension type: essential hypertension Qualified Code(s): I10 - Essential (primary) hypertension Core Measure Documentation - Palliative Care Palliative Care/ Comfort Measures: Not Applicable - Core Measures Any of the following diagnoses?: none Exam - Physical Exam Narrative exam: Not in cardiopulmonary distress. The patient appeared well nourished and normally developed. Vital signs as documented. Head exam is unremarkable. No scleral icterus . Neck is without jugular venous distension, thyromegaly, or carotid bruits. Lungs are clear to auscultation. Cardiac exam reveals regular rate and Rhythm. First and second heart sounds normal. No murmurs, rubs or gallops. Abdominal exam reveals normal bowel sounds, no masses, no organomegaly and no aortic enlargement. 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 - Constitutional Vitals: Temp Pulse Resp BP Pulse Ox 99.1 F 77 18 148/74 96 03/07/19 12:29 03/07/19 12:29 03/07/19 12:29 03/07/19 12:29 03/07/19 12:29 Plan Activity: advance as tolerated Weight Bearing Status: Weight Bear as Tolerated Diet: low salt, diabetic Follow up with: PRIMARY CARE,MD [Primary Care Provider] - 3-5 Days Prescriptions: Insulin Glargine [Lantus VIAL] 30 units SUB-Q QHS #1 vial AtorvaSTATin [Lipitor] 40 mg PO QHS #30 tablet Mupirocin [Bactroban 2% OINT] 1 applic NS BID #4 tube levETIRAcetam [Keppra TAB] 500 mg PO BID #30 tablet Metoprolol [Lopressor TAB] 25 mg PO BID #30 tablet Clopidogrel [Plavix] 75 mg PO QDAY #30 tablet
== END 2019-03-07 17:45 | DRG 100 ==
LOC: ED 22:00 → 4A 03-02 00:36
PROVIDERS: ADMIT Internal Medicine Geriatric Medicine; ATTEND Internal Medicine
DX: G40.901 Epilepsy, unspecified, not intractable, with status epilepticus (principal); E11.00 Type 2 diabetes mellitus with hyperosmolarity without nonketotic hyperglycemic-hyperosmolar coma (NKHHC); E11.65 Type 2 diabetes mellitus with hyperglycemia; I10 Essential (primary) hypertension; E78.5 Hyperlipidemia, unspecified; Z88.2 Allergy status to sulfonamides; Z79.84 Long term (current) use of oral hypoglycemic drugs; Z89.512 Acquired absence of left leg below knee
CPT/HCPCS: 36415; 70450; 70544; 80048; 80053; 80061; 81001; 82310; 82550; 82553; 82805; 82962; 83036; 83735; 84100; 84484; 85025; 85610; 85670; 85730; 87116; 93005; 93010; 93306; 95819; G0378; A9270-GY; J0360; J1815; J1953; J2060; J7030

== ENCOUNTER 2019-06-02 23:33 | Emergency (ER) | payer MEDICARE, OTHER ==
--- NOTE | 2019-06-03 03:01 | Emergency Department Report ---
ED General Adult HPI - General Chief complaint: Hypoglycemia Stated complaint: TOOK TO MUCH INSULIN Time Seen by Provider: 06/03/19 00:27 Source: patient Mode of arrival: Ambulatory Limitations: No Limitations - History of Present Illness Initial comments: Patient is a 73-year-old Female with history of insulin-dependent diabetes who is presenting after accidental overdose of one of her insulin. Patient after eating dinner in the evening A to her sliding scale and should have taken 2 units of Regular Insulin and then her daily dose of 25 units of Levemir however the patient absolutely to 2 units of regular insulin and another 25 units of regular insulin. This occurred at approximately 20-30. Blood glucose was 192 at that time. Patient's been eating candy has not had any episodes of diaphoresis or confusion. - Related Data Home Medications Medication Instructions Recorded Confirmed Last Taken metFORMIN [Glucophage] 1,000 tab PO QPM 03/02/19 03/02/19 Unknown Previous Rx's Medication Instructions Recorded Last Taken Type AtorvaSTATin [Lipitor] 40 mg PO QHS #30 tablet 03/07/19 Unknown Rx Clopidogrel [Plavix] 75 mg PO QDAY #30 tablet 03/07/19 Unknown Rx Insulin Glargine [Lantus VIAL] 30 units SUB-Q QHS #1 vial 03/07/19 Unknown Rx Metoprolol [Lopressor TAB] 25 mg PO BID #30 tablet 03/07/19 Unknown Rx Mupirocin [Bactroban 2% OINT] 1 applic NS BID #4 tube 03/07/19 Unknown Rx levETIRAcetam [Keppra TAB] 500 mg PO BID #30 tablet 03/07/19 Unknown Rx Allergies Allergy/AdvReac Type Severity Reaction Status Date / Time aspirin Allergy Hives Verified 03/18/18 10:05 ED Review of Systems ROS: Stated complaint: TOOK TO MUCH INSULIN Other details as noted in HPI Comment: All other systems reviewed and negative ED Past Medical Hx - Past Medical History Previous Medical History?: Yes Hx Hypertension: Yes Hx Congestive Heart Failure: No Hx Diabetes: Yes Hx Asthma: No Hx COPD: No - Surgical History Past Surgical History?: Yes Additional Surgical History: Massimo QUARLES 02/2015 - Social History Smoking Status: Former Smoker Substance Use Type: None - Medications Home Medications: Home Medications Medication Instructions Recorded Confirmed Last Taken Type metFORMIN [Glucophage] 1,000 tab PO QPM 03/02/19 03/02/19 Unknown History AtorvaSTATin [Lipitor] 40 mg PO QHS #30 tablet 03/07/19 Unknown Rx Clopidogrel [Plavix] 75 mg PO QDAY #30 tablet 03/07/19 Unknown Rx Insulin Glargine [Lantus VIAL] 30 units SUB-Q QHS #1 vial 03/07/19 Unknown Rx Metoprolol [Lopressor TAB] 25 mg PO BID #30 tablet 03/07/19 Unknown Rx Mupirocin [Bactroban 2% OINT] 1 applic NS BID #4 tube 03/07/19 Unknown Rx levETIRAcetam [Keppra TAB] 500 mg PO BID #30 tablet 03/07/19 Unknown Rx ED Physical Exam - General Limitations: No Limitations General appearance: alert, in no apparent distress - Head Head exam: Present: atraumatic, normocephalic - Eye Eye exam: Present: normal appearance - ENT ENT exam: Present: mucous membranes moist - Neck Neck exam: Present: normal inspection - Respiratory Respiratory exam: Present: normal lung sounds bilaterally. Absent: respiratory distress, wheezes, rales, rhonchi - Cardiovascular Cardiovascular Exam: Present: regular rate, normal rhythm, normal heart sounds. Absent: systolic murmur, diastolic murmur, rubs, gallop - GI/Abdominal GI/Abdominal exam: Present: soft, normal bowel sounds. Absent: distended, tenderness, guarding, rebound - Extremities Exam Extremities exam: Present: normal inspection - Back Exam Back exam: Present: normal inspection - Neurological Exam Neurological exam: Present: alert, oriented X3 - Psychiatric Psychiatric exam: Present: normal affect, normal mood - Skin Skin exam: Present: warm, dry, intact, normal color. Absent: rash ED Course Vital Signs 06/02/19 23:57 Temperature 98.2 F Pulse Rate 93 H Respiratory 18 Rate Blood Pressure 188/108 O2 Sat by Pulse 98 Oximetry ED Medical Decision Making - Lab Data Lab Results 06/02/19 06/03/19 06/03/19 Range/Units 23:50 00:51 02:59 POC Glucose 112 H 91 84 (70-105) - Medical Decision Making Patient was monitored for several hours. After 3 hours patient's Regular Insulin would've been metabolized by now. Patient is alert and oriented 3 blood sugars have been normal. Patient be discharged home. Critical care attestation.: If time is entered above; I have spent that time in minutes in the direct care of this critically ill patient, excluding procedure time. ED Disposition Clinical Impression: Accidental overdose Qualifiers: Encounter type: initial encounter Qualified Code(s): T50.901A - Poisoning by unspecified drugs, medicaments and biological substances, accidental (unintentional), initial encounter Disposition: TO HOME OR SELFCARE Is pt being admited?: No Does the pt Need Aspirin: No Condition: Stable Instructions: Diabetic Hypoglycemia (ED) Referrals: YINA GARCIA MD [Primary Care Provider] - 3-5 Days Time of Disposition: 03:01
[2019-06-03 04:04] VITALS: BP 179/94
== END 2019-06-03 03:00 | disposition home or self-care (01) ==
LOC: ED 23:33
DX: T38.3X1A Poisoning by insulin and oral hypoglycemic [antidiabetic] drugs, accidental (unintentional), initial encounter (principal); I10 Essential (primary) hypertension; E11.9 Type 2 diabetes mellitus without complications; Z89.612 Acquired absence of left leg above knee; Z79.899 Other long term (current) drug therapy; Z88.6 Allergy status to analgesic agent; Y92.89 Other specified places as the place of occurrence of the external cause
CPT/HCPCS: 82962; 99283